=== PATIENT | male | born 1960 | race African-American/Black ===

== ENCOUNTER 2025-02-12 16:11 | Inpatient (IN) | payer MEDICAID ==
[~2025-02-12] VITALS: Ht 172.7 cm; Wt 76.4 kg
[~2025-02-12 16:11] MED LIST: ACET-2708 MT; AMLO10TA80 MT; BENZ1TAB79 MT; BISA-81 MT; FAMO-135 MT; KEPP500 PO; NITR-87 MT; RISP1 PO; TOPUD MT; XALAO EACHEYE
[2025-02-12 17:14] LABS: CREATININE 1.3 mg/dL (0.6-1.3); UREA NITROGEN BLOOD 31 mg/dL (9-23)
[2025-02-12 17:16] LABS: ASPARTATE AMINOTRANSFERASE 191 IU/L (<34); BASOPHILS % 0.4 % (0.0-2.0); BILIRUBIN DIRECT 0.3 mg/dL (<=3.0); BILIRUBIN TOTAL 0.6 mg/dL (0.1-1.0); EOSINOPHILS % 0.8 % (0.0-5.0); HEMATOCRIT. 41.5 % (42.0-52.0); HEMOGLOBIN. 13.1 g/dL (14.0-18.0); LYMPHOCYTES % 16.0 % (20.0-50.0); MEAN PLATELET VOLUME 8.7 fl (7.4-10.4); MONOCYTES % 12.0 % (2.0-8.0); NEUTROPHILS % 70.8 % (40.0-76.0); PLATELET 412 x1000/uL (130-400); PROTEIN TOTAL 6.4 g/dL (6.0-8.3); RED BLOOD CELL COUNT 5.21 mill/uL (4.7-6.1); RED CELL DISTRIBUTION WIDTH 16.4 % (11.6-14.6); TROPONIN I HIGH SENSITIVITY 25 ng/L (3.0-53)
[2025-02-12] MEDS: AZITHROMYCIN 500MG/250ML 250 ML IV STA (17:22)
[2025-02-12] MEDS: CEFTRIAXONE 1GM/50ML 50 ML IV ONE (17:33)
[2025-02-12 18:07] LABS: BG BASE EXCESS -3.1 mmol/L (-2.0-3.0); BG CARBOXYHEMOGLOBIN 1.9 % (0.5-1.5); BG DEOXYHEMOGLOBIN 19.9 % (0.0-5.0); BG FRACTION INSPIRED OXYGEN 40; BG HCO3 ACT 24.0 mmol/L (21.0-28.0); BG METHEMOGLOBIN 0.3 % (0.5-1.5); BG OXYGEN SATURATION 79.7 % (94.0-98.0); BG OXYHEMOGLOBIN 77.9 % (94.0-98.0); BG PCO2 51.0 mmHg (35.0-48.0); BG PH 7.290 (7.350-7.450); BG PO2 52.1 mmHg (83.0-108.0); BG SAMPLE SITE RIGHT RADIAL; BG TOTAL HEMOGLOBIN 13.5 g/dL (13.5-17.5); BG VENT MODE NASAL CANNULA
[2025-02-12 18:28] VITALS: RESP 54
[2025-02-12] MEDS: AZITHROMYCIN 500MG/250ML 250 ML IV SCH (19:31)
[2025-02-12] MEDS ORDERED: ACETAMINOPHEN 325MG TABLET PO PRN (19:45)
[2025-02-12 20:50] VITALS: RESP 32
[2025-02-12 21:00] VITALS: BP 100/77; PULSE 82; RESP 23; TEMP 36.4; O2SAT 95
[2025-02-12 22:00] VITALS: BP 120/108; PULSE 82; RESP 16; O2SAT 99
[2025-02-12] MEDS: PANTOPRAZOLE 40MG DR TABLET PO SCH (22:03)
[2025-02-12] MEDS: LEVETIRACETAM 500MG TABLET PO SCH (22:03)
[2025-02-12] MEDS: BENZTROPINE MESYLATE 1MG TABLET PO SCH (22:03)
[2025-02-12] MEDS: SODIUM CHLORIDE 0.9% 1,000 ML IV ONE (22:09)
[2025-02-12 22:18] VITALS: BP 102/78; PULSE 84; RESP 17; TEMP 36.418
[2025-02-13] VITALS (62 sets, daily range): BP systolic 83–174; BP diastolic 62–115; PULSE 67–89; RESP 19–52; TEMP 35.7–37; O2SAT 87–100
[2025-02-13] MEDS: IPRATROPIUM/ALBUTEROL 0.5-3(2.5)MG/3ML NEB HHN SCH ×2 (02:58→08:50)
[2025-02-13] MEDS ORDERED: FUROSEMIDE 40MG/4ML VIAL IVP SCH (04:00)
[2025-02-13 08:23] LABS: HEMATOCRIT. 40.2 % (42.0-52.0); HEMOGLOBIN. 13.0 g/dL (14.0-18.0); MEAN PLATELET VOLUME 8.5 fl (7.4-10.4); PLATELET 444 x1000/uL (130-400); RED BLOOD CELL COUNT 5.15 mill/uL (4.7-6.1); RED CELL DISTRIBUTION WIDTH 15.9 % (11.6-14.6)
[2025-02-13 08:45] LABS: T4 FREE 1.17 ng/dL (0.89-1.76)
[2025-02-13] MEDS: AMLODIPINE 10MG TABLET PO SCH (09:00)
[2025-02-13] MEDS ORDERED: DOXYCYCLINE HYCLATE 100 MG/VIAL IV ONE (10:00)
[2025-02-13] MEDS ORDERED: DEXTROSE 50% WATER 50ML SYRINGE IV PRN (10:00)
[2025-02-13] MEDS ORDERED: NOREPINEPHRINE 8 MG in DEXT 5% WATER 242 ML IV PRN (11:15)
[2025-02-13 11:25] LABS: BG BASE EXCESS -5.7 mmol/L (-2.0-3.0); BG CARBOXYHEMOGLOBIN 1.6 % (0.5-1.5); BG DEOXYHEMOGLOBIN 14.5 % (0.0-5.0); BG FRACTION INSPIRED OXYGEN 60; BG HCO3 ACT 23.9 mmol/L (21.0-28.0); BG METHEMOGLOBIN 0.3 % (0.5-1.5); BG OXYGEN SATURATION 85.2 % (94.0-98.0); BG OXYHEMOGLOBIN 83.6 % (94.0-98.0); BG PCO2 66.6 mmHg (35.0-48.0); BG PH 7.173 (7.350-7.450); BG PO2 61.2 mmHg (83.0-108.0); BG SAMPLE SITE RIGHT RADIAL; BG TOTAL HEMOGLOBIN 13.5 g/dL (13.5-17.5); BG VENT MODE MASK - BIPAP; BG VENT RATE 22.0 set
[2025-02-13] MEDS: PROPOFOL 10MG/ML 100ML 100 ML IV PRN (12:50)
[2025-02-13] MEDS: PANTOPRAZOLE SODIUM 40 MG/VIAL IV SCH (13:20)
[2025-02-13] MEDS: ENOXAPARIN 60MG/0.6ML SYR SUBCUT SCH (13:20)
[2025-02-13] MEDS: PIPERACILLIN/TAZO 3.375G/50ML 50 ML IV SCH (13:20)
[2025-02-13] MEDS: FUROSEMIDE 40MG/4ML VIAL IVP SCH (13:21)
[2025-02-13 13:34] LABS: INR 1.0
[2025-02-13 14:57] LABS: HEPATITIS C AB REACTIVE (Pos) (Negative)
[2025-02-13 15:09] LABS: CREATININE 1.1 mg/dL (0.6-1.3); UREA NITROGEN BLOOD 28 mg/dL (9-23)
[2025-02-13 15:11] LABS: PHOSPHORUS 4.8 mg/dL (2.5-4.9)
[2025-02-13] MEDS: DEXT 5%/0.9% NACL 1,000 ML IV SCH (15:43)
[2025-02-13] MEDS: VANCOMYCIN 1.25GM/250ML 250 ML IV SCH (15:43)
[2025-02-13] MEDS: DOXYCYCLINE 100MG/100ML 100 ML IV NR (15:43)
[2025-02-13 15:51] LABS: BG BASE EXCESS -0.6 mmol/L (-2.0-3.0); BG CARBOXYHEMOGLOBIN 1.4 % (0.5-1.5); BG DEOXYHEMOGLOBIN 9.8 % (0.0-5.0); BG FRACTION INSPIRED OXYGEN 100; BG HCO3 ACT 25.8 mmol/L (21.0-28.0); BG METHEMOGLOBIN 0.3 % (0.5-1.5); BG OXYGEN SATURATION 90.0 % (94.0-98.0); BG OXYHEMOGLOBIN 88.5 % (94.0-98.0); BG PCO2 49.3 mmHg (35.0-48.0); BG PEEP (cmH2O) 8.0 cmH2O; BG PH 7.337 (7.350-7.450); BG PO2 61.1 mmHg (83.0-108.0); BG SAMPLE SITE RIGHT RADIAL; BG TIDAL VOLUME(mL) 500.0 mL; BG TOTAL HEMOGLOBIN 14.6 g/dL (13.5-17.5); BG VENT MODE VENT - AC; BG VENT RATE 26.0 set
[2025-02-13] MEDS: SODIUM ZIRCONIUM CYCLOSILICATE 10GM/PACKET PO NR (15:52)
[2025-02-13] MEDS: CALCIUM GLUCONATE 1GM PREMIX 50 ML IV SCH (15:53)
[2025-02-13] MEDS: FENTANYL 2500MCG/250ML PMX 250 ML IV PRN (16:33)
[2025-02-13] MEDS: ACETYLCYSTEINE 200MG/ML 20% VIAL 4ML INH SCH (16:35)
[2025-02-13] MEDS ORDERED: CEFTRIAXONE 2GM/50ML 50 ML IV SCH (18:00)
[2025-02-13 19:12] LABS: BAND% 2.0 % (1.0-6.0); LYMPHOCYTES % MANUAL 9.0 % (20.0-50.0); MONOCYTES % MANUAL 7.0 % (2.0-8.0); NEUTROPHILS % MANUAL 82.0 % (45.0-75.0); PLATELET ESTIMATE INCREASED
[2025-02-13] MEDS ORDERED: AZITHROMYCIN 500MG/250ML 250 ML IV SCH (20:00)
[2025-02-13 21:03] LABS: CLARITY URINE CLEAR (CLEAR); GLUCOSE URINE NEGATIVE (NEGATIVE); KETONES URINE NEGATIVE (NEGATIVE); LEUKOCYTE ESTERASE URINE NEGATIVE (NEGATIVE); NITRITE URINE NEGATIVE (NEGATIVE); OCCULT BLOOD URINE TRACE (NEGATIVE); PH URINE 5.0 (4.5-8.0); PROTEIN URINE NEGATIVE (NEGATIVE); SPECIFIC GRAVITY URINE 1.008 (1.005-1.030); UROBILINOGEN URINE 0.2 E.U./dL (0.2-1.0)
[2025-02-13] MEDS: LEVETIRACETAM 1000MG PREMIX 100 ML IV SCH (21:16)
[2025-02-13] MEDS: METHYLPREDNISOLONE SOD SUCC 40MG/ML (ACT-O-VIAL) IV SCH (21:16)
[2025-02-13 21:18] LABS: *AMPHETAMINES SCREEN URINE NEGATIVE (NEGATIVE); *BARBITURATES SCREEN URINE NEGATIVE (NEGATIVE); *BENZODIAZEPINES SCREEN URINE NEGATIVE (NEGATIVE); *COCAINE SCREEN URINE NEGATIVE (NEGATIVE); METHADONE URINE SCREEN NEGATIVE (NEGATIVE)
[2025-02-13 21:19] LABS: CANNABINOID URINE SCREEN NEGATIVE (NEGATIVE); ECSTASY MDMA SCREEN URINE NEGATIVE (NEGATIVE); OPIATES URINE SCREEN NEGATIVE (NEGATIVE); PHENCYCLIDINE URINE SCREEN NEGATIVE (NEGATIVE)
[2025-02-13 21:20] LABS: COLOR URINE STRAW (YELLOW)
[2025-02-13 21:22] LABS: BACTERIA URINE NONE SEEN; RBC URINE 0-2 /hpf (0-2); SQUAMOUS EPITHELIAL CELL URINE RARE /lpf (RARE/1+); WBC URINE NONE SEEN /hpf (0-2)
[2025-02-13] MEDS: LATANOPROST 0.005% OPHTH DROPS 2.5ML EACHEYE SCH (21:36)
[2025-02-13] MEDS: VANCOMYCIN 750MG/150ML (BAXTER) IV SCH (22:10)
[2025-02-14] VITALS (76 sets, daily range): BP systolic 61–134; BP diastolic 51–113; PULSE 51–122; RESP 12–28; TEMP 36.4–37.1; O2SAT 80–100
[2025-02-14] MEDS: NOREPINEPHRINE 8MG/250ML PMX 250ML IV PRN (02:22)
[2025-02-14 03:17] LABS: BASOPHILS % 0.2 % (0.0-2.0); EOSINOPHILS % 4.4 % (0.0-5.0); HEMATOCRIT. 37.5 % (42.0-52.0); HEMOGLOBIN. 12.1 g/dL (14.0-18.0); LYMPHOCYTES % 8.3 % (20.0-50.0); MEAN PLATELET VOLUME 9.0 fl (7.4-10.4); MONOCYTES % 4.8 % (2.0-8.0); NEUTROPHILS % 82.3 % (40.0-76.0); PLATELET 402 x1000/uL (130-400); RED BLOOD CELL COUNT 4.85 mill/uL (4.7-6.1); RED CELL DISTRIBUTION WIDTH 15.6 % (11.6-14.6)
[2025-02-14 03:30] LABS: CREATININE 1.3 mg/dL (0.6-1.3); TRIGLYCERIDE 98 mg/dL (0-150); UREA NITROGEN BLOOD 24 mg/dL (9-23)
[2025-02-14 03:31] LABS: ASPARTATE AMINOTRANSFERASE 117 IU/L (<34)
[2025-02-14 03:32] LABS: BILIRUBIN DIRECT 0.6 mg/dL (<=3.0); BILIRUBIN TOTAL 1.0 mg/dL (0.1-1.0); PHOSPHORUS 3.7 mg/dL (2.5-4.9); PROTEIN TOTAL 5.8 g/dL (6.0-8.3)
[2025-02-14] MEDS: ENOXAPARIN 60MG/0.6ML SYR SUBCUT SCH (04:58)
[2025-02-14] MEDS: SODIUM CHLORIDE 3% FOR INH 4ML NEB INH SCH (08:29)
[2025-02-14 10:08] LABS: BG BASE EXCESS 1.4 mmol/L (-2.0-3.0); BG CARBOXYHEMOGLOBIN 1.4 % (0.5-1.5); BG DEOXYHEMOGLOBIN 11.3 % (0.0-5.0); BG FRACTION INSPIRED OXYGEN 60; BG HCO3 ACT 25.2 mmol/L (21.0-28.0); BG METHEMOGLOBIN 0.3 % (0.5-1.5); BG OXYGEN SATURATION 88.5 % (94.0-98.0); BG OXYHEMOGLOBIN 87.0 % (94.0-98.0); BG PCO2 37.3 mmHg (35.0-48.0); BG PEEP (cmH2O) 8.0 cmH2O; BG PH 7.448 (7.350-7.450); BG PO2 56.4 mmHg (83.0-108.0); BG SAMPLE SITE RIGHT RADIAL; BG TIDAL VOLUME(mL) 500.0 mL; BG TOTAL HEMOGLOBIN 13.3 g/dL (13.5-17.5); BG TOTAL RESPIRATORY RATE 26 b/min; BG VENT MODE VENT - AC; BG VENT RATE 26.0 set
[2025-02-14] MEDS: LORAZEPAM 2MG/ML UD SYRINGE IV PRN (11:30)
[2025-02-14] MEDS: DOXYCYCLINE 100MG/100ML 100 ML IV SCH (13:22)
[2025-02-14] MEDS: ENOXAPARIN 80MG/0.8ML SYR SUBCUT SCH (17:13)
[2025-02-14] MEDS ORDERED: MIDAZOLAM HCL 2 MG/2 ML VIAL IV PRN (21:00)
[2025-02-14] MEDS: DEXMEDETOMIDINE 100 ML IV PRN (21:39)
[2025-02-15] VITALS (71 sets, daily range): BP systolic 75–145; BP diastolic 56–104; PULSE 0–124; RESP 0–36; TEMP 36.4–37.4; O2SAT 94–100
[2025-02-15 05:52] LABS: HEMATOCRIT. 38.8 % (42.0-52.0); HEMOGLOBIN. 12.6 g/dL (14.0-18.0); MEAN PLATELET VOLUME 8.9 fl (7.4-10.4); PLATELET 440 x1000/uL (130-400); RED BLOOD CELL COUNT 5.05 mill/uL (4.7-6.1); RED CELL DISTRIBUTION WIDTH 15.7 % (11.6-14.6)
[2025-02-15 06:12] LABS: CREATININE 1.3 mg/dL (0.6-1.3); UREA NITROGEN BLOOD 26 mg/dL (9-23)
[2025-02-15 06:14] LABS: ASPARTATE AMINOTRANSFERASE 105 IU/L (<34); BILIRUBIN DIRECT 0.6 mg/dL (<=3.0)
[2025-02-15 06:15] LABS: BILIRUBIN TOTAL 1.1 mg/dL (0.1-1.0); PHOSPHORUS 3.3 mg/dL (2.5-4.9); PROTEIN TOTAL 5.9 g/dL (6.0-8.3)
[2025-02-15] MEDS: MIDAZOLAM 100MG/100ML PMX 100 ML IV PRN (09:09)
[2025-02-15] MEDS: BISACODYL 5MG TABLET PO PRN (09:11)
[2025-02-15 09:36] LABS: BG BASE EXCESS 0.2 mmol/L (-2.0-3.0); BG CARBOXYHEMOGLOBIN 1.8 % (0.5-1.5); BG DEOXYHEMOGLOBIN 7.7 % (0.0-5.0); BG FRACTION INSPIRED OXYGEN 40; BG HCO3 ACT 24.3 mmol/L (21.0-28.0); BG METHEMOGLOBIN 0.3 % (0.5-1.5); BG OXYGEN SATURATION 92.1 % (94.0-98.0); BG OXYHEMOGLOBIN 90.2 % (94.0-98.0); BG PCO2 37.5 mmHg (35.0-48.0); BG PEEP (cmH2O) 8.0 cmH2O; BG PH 7.429 (7.350-7.450); BG PO2 68.3 mmHg (83.0-108.0); BG SAMPLE SITE RIGHT RADIAL; BG TIDAL VOLUME(mL) 500.0 mL; BG TOTAL HEMOGLOBIN 13.5 g/dL (13.5-17.5); BG TOTAL RESPIRATORY RATE 22 b/min; BG VENT MODE VENT - AC; BG VENT RATE 22.0 set
[2025-02-15] MEDS ORDERED: PROPOFOL 10MG/ML 100ML 100 ML IV PRN (10:15)
[2025-02-15 12:09] LABS: LYMPHOCYTES % MANUAL 2.0 % (20.0-50.0); MONOCYTES % MANUAL 1.0 % (2.0-8.0); NEUTROPHILS % MANUAL 97.0 % (45.0-75.0); PLATELET ESTIMATE INCREASED
[2025-02-16] VITALS (58 sets, daily range): BP systolic 91–137; BP diastolic 67–91; PULSE 48–83; RESP 18–30; TEMP 36.4–36.9; O2SAT 87–100
[2025-02-16 05:22] LABS: HEMATOCRIT. 39.8 % (42.0-52.0); HEMOGLOBIN. 13.0 g/dL (14.0-18.0); MEAN PLATELET VOLUME 8.5 fl (7.4-10.4); PLATELET 471 x1000/uL (130-400); RED BLOOD CELL COUNT 5.18 mill/uL (4.7-6.1); RED CELL DISTRIBUTION WIDTH 15.6 % (11.6-14.6)
[2025-02-16 05:28] LABS: ASPARTATE AMINOTRANSFERASE 109 IU/L (<34)
[2025-02-16 05:29] LABS: PROTEIN TOTAL 5.8 g/dL (6.0-8.3)
[2025-02-16 05:30] LABS: CREATININE 1.6 mg/dL (0.6-1.3)
[2025-02-16 05:31] LABS: TRIGLYCERIDE 68 mg/dL (0-150); UREA NITROGEN BLOOD 34 mg/dL (9-23)
[2025-02-16 05:32] LABS: BILIRUBIN DIRECT 0.6 mg/dL (<=3.0); PHOSPHORUS 3.1 mg/dL (2.5-4.9)
[2025-02-16 05:33] LABS: BILIRUBIN TOTAL 1.2 mg/dL (0.1-1.0)
[2025-02-16] MEDS: DOCUSATE SODIUM 100MG CAPSULE PO PRN (09:21)
[2025-02-16] MEDS: SODIUM CHLORIDE 0.9% 1,000 ML IV SCH (09:22)
[2025-02-16 10:15] LABS: BG BASE EXCESS 0.9 mmol/L (-2.0-3.0); BG CARBOXYHEMOGLOBIN 0.6 % (0.5-1.5); BG DEOXYHEMOGLOBIN 9.1 % (0.0-5.0); BG FRACTION INSPIRED OXYGEN 40; BG HCO3 ACT 24.9 mmol/L (21.0-28.0); BG METHEMOGLOBIN 0.3 % (0.5-1.5); BG OXYGEN SATURATION 90.8 % (94.0-98.0); BG OXYHEMOGLOBIN 90.0 % (94.0-98.0); BG PCO2 38.1 mmHg (35.0-48.0); BG PEEP (cmH2O) 8.0 cmH2O; BG PH 7.434 (7.350-7.450); BG PO2 66.3 mmHg (83.0-108.0); BG SAMPLE SITE RIGHT RADIAL; BG TIDAL VOLUME(mL) 500.0 mL; BG TOTAL HEMOGLOBIN 13.1 g/dL (13.5-17.5); BG VENT MODE VENT - AC; BG VENT RATE 22.0 set
[2025-02-16] MEDS: LORAZEPAM 2MG/ML UD SYRINGE IV NR (12:25)
[2025-02-16 15:07] LABS: LYMPHOCYTES % MANUAL 6.0 % (20.0-50.0); MONOCYTES % MANUAL 3.0 % (2.0-8.0); NEUTROPHILS % MANUAL 91.0 % (45.0-75.0)
[2025-02-16 15:08] LABS: PLATELET ESTIMATE NORMAL
[2025-02-16] MEDS: FENTANYL CITRATE/PF 2,500 MCG in SODIUM CHLORIDE 0.9% 200 ML IV PRN (21:24)
[2025-02-17] VITALS (104 sets, daily range): BP systolic 94–156; BP diastolic 74–109; PULSE 42–91; RESP 14–23; TEMP 36.1–36.4; O2SAT 73–100
[2025-02-17 06:18] LABS: HEMATOCRIT. 38.6 % (42.0-52.0); HEMOGLOBIN. 12.4 g/dL (14.0-18.0); MEAN PLATELET VOLUME 8.6 fl (7.4-10.4); PLATELET 401 x1000/uL (130-400); RED BLOOD CELL COUNT 4.92 mill/uL (4.7-6.1); RED CELL DISTRIBUTION WIDTH 15.9 % (11.6-14.6)
[2025-02-17 07:25] LABS: CREATININE 1.2 mg/dL (0.6-1.3)
[2025-02-17 07:26] LABS: TRIGLYCERIDE 82 mg/dL (0-150); UREA NITROGEN BLOOD 32 mg/dL (9-23)
[2025-02-17 07:27] LABS: ASPARTATE AMINOTRANSFERASE 97 IU/L (<34); BILIRUBIN DIRECT 0.7 mg/dL (<=3.0)
[2025-02-17 07:28] LABS: BILIRUBIN TOTAL 1.2 mg/dL (0.1-1.0); PHOSPHORUS 2.9 mg/dL (2.5-4.9); PROTEIN TOTAL 5.6 g/dL (6.0-8.3)
[2025-02-17 09:12] LABS: BG BASE EXCESS -0.3 mmol/L (-2.0-3.0); BG CARBOXYHEMOGLOBIN 1.3 % (0.5-1.5); BG DEOXYHEMOGLOBIN 7.0 % (0.0-5.0); BG FRACTION INSPIRED OXYGEN 70; BG HCO3 ACT 23.0 mmol/L (21.0-28.0); BG METHEMOGLOBIN 0.3 % (0.5-1.5); BG OXYGEN SATURATION 92.9 % (94.0-98.0); BG OXYHEMOGLOBIN 91.4 % (94.0-98.0); BG PCO2 33.6 mmHg (35.0-48.0); BG PEEP (cmH2O) 8.0 cmH2O; BG PH 7.453 (7.350-7.450); BG PO2 71.8 mmHg (83.0-108.0); BG SAMPLE SITE RIGHT RADIAL; BG TIDAL VOLUME(mL) 500.0 mL; BG TOTAL HEMOGLOBIN 13.4 g/dL (13.5-17.5); BG VENT MODE VENT - AC; BG VENT RATE 22.0 set
[2025-02-17] MEDS: PROPOFOL 10MG/ML 100ML 100 ML IV PRN ×2 (13:09→23:55)
[2025-02-17 19:04] LABS: BAND% 3.0 % (1.0-6.0); LYMPHOCYTES % MANUAL 3.0 % (20.0-50.0); MONOCYTES % MANUAL 7.0 % (2.0-8.0); NEUTROPHILS % MANUAL 87.0 % (45.0-75.0); PLATELET ESTIMATE SLIGHTLY INCREASED
[2025-02-18] VITALS (111 sets, daily range): BP systolic 81–163; BP diastolic 49–110; PULSE 40–86; RESP 14–25; TEMP 36.1–37.1; O2SAT 94–100
[2025-02-18 05:39] LABS: HEMATOCRIT. 38.4 % (42.0-52.0); HEMOGLOBIN. 12.6 g/dL (14.0-18.0); MEAN PLATELET VOLUME 8.8 fl (7.4-10.4); PLATELET 397 x1000/uL (130-400); RED BLOOD CELL COUNT 5.09 mill/uL (4.7-6.1); RED CELL DISTRIBUTION WIDTH 15.9 % (11.6-14.6)
[2025-02-18 05:54] LABS: CREATININE 1.0 mg/dL (0.6-1.3); TRIGLYCERIDE 122 mg/dL (0-150); UREA NITROGEN BLOOD 34 mg/dL (9-23)
[2025-02-18 05:56] LABS: PHOSPHORUS 2.2 mg/dL (2.5-4.9)
[2025-02-18 07:04] LABS: BAND% 2.0 % (1.0-6.0); EOSINOPHILS % MANUAL 2.0 % (0.0-5.0); LYMPHOCYTES % MANUAL 7.0 % (20.0-50.0); MONOCYTES % MANUAL 3.0 % (2.0-8.0); NEUTROPHILS % MANUAL 86.0 % (45.0-75.0); PLATELET ESTIMATE NORMAL
[2025-02-18] MEDS: IPRATROPIUM/ALBUTEROL 0.5-3(2.5)MG/3ML NEB HHN PRN (08:28)
[2025-02-18 09:22] LABS: T4 FREE 1.24 ng/dL (0.89-1.76)
[2025-02-18 10:39] LABS: BG BASE EXCESS -1.5 mmol/L (-2.0-3.0); BG CARBOXYHEMOGLOBIN 1.1 % (0.5-1.5); BG DEOXYHEMOGLOBIN 9.3 % (0.0-5.0); BG FRACTION INSPIRED OXYGEN 60; BG HCO3 ACT 21.7 mmol/L (21.0-28.0); BG METHEMOGLOBIN 0.3 % (0.5-1.5); BG OXYGEN SATURATION 90.6 % (94.0-98.0); BG OXYHEMOGLOBIN 89.3 % (94.0-98.0); BG PCO2 32.3 mmHg (35.0-48.0); BG PEEP (cmH2O) 8.0 cmH2O; BG PH 7.445 (7.350-7.450); BG PO2 63.1 mmHg (83.0-108.0); BG SAMPLE SITE RIGHT RADIAL; BG TIDAL VOLUME(mL) 500.0 mL; BG TOTAL HEMOGLOBIN 13.5 g/dL (13.5-17.5); BG VENT MODE VENT - PRVC; BG VENT RATE 18.0 set
[2025-02-18] MEDS: SODIUM PHOSPHATE 15 MMOL in DEXT 5% WATER 245 ML IV NR (12:08)
[2025-02-18] MEDS: IPRATROPIUM/ALBUTEROL 0.5-3(2.5)MG/3ML NEB HHN SCH (12:52)
[2025-02-18] MEDS ORDERED: LIDOCAINE HCL 1% 10 MG/ML 10ML VIAL ONE (13:18)
[2025-02-18] MEDS ORDERED: IOHEXOL-300 100 ML BOTTLE ONE (13:19)
[2025-02-18] MEDS: PROPOFOL 10MG/ML 100ML 100 ML IV PRN (13:27)
[2025-02-19] VITALS (101 sets, daily range): BP systolic 117–154; BP diastolic 75–105; PULSE 42–90; RESP 16–21; TEMP 36.6–37.2; O2SAT 89–100
[2025-02-19 07:37] LABS: CREATININE 1.0 mg/dL (0.6-1.3)
[2025-02-19 07:38] LABS: TRIGLYCERIDE 99 mg/dL (0-150); UREA NITROGEN BLOOD 26 mg/dL (9-23)
[2025-02-19 07:39] LABS: HEMATOCRIT. 42.6 % (42.0-52.0); HEMOGLOBIN. 13.8 g/dL (14.0-18.0); MEAN PLATELET VOLUME 8.9 fl (7.4-10.4); PLATELET 390 x1000/uL (130-400); RED BLOOD CELL COUNT 5.58 mill/uL (4.7-6.1); RED CELL DISTRIBUTION WIDTH 16.0 % (11.6-14.6)
[2025-02-19 07:40] LABS: PHOSPHORUS 3.9 mg/dL (2.5-4.9)
[2025-02-19 08:54] LABS: BG BASE EXCESS -2.8 mmol/L (-2.0-3.0); BG CARBOXYHEMOGLOBIN 1.5 % (0.5-1.5); BG DEOXYHEMOGLOBIN 9.1 % (0.0-5.0); BG FRACTION INSPIRED OXYGEN 50; BG HCO3 ACT 19.8 mmol/L (21.0-28.0); BG METHEMOGLOBIN 0.3 % (0.5-1.5); BG OXYGEN SATURATION 90.7 % (94.0-98.0); BG OXYHEMOGLOBIN 89.1 % (94.0-98.0); BG PCO2 28.5 mmHg (35.0-48.0); BG PEEP (cmH2O) 8.0 cmH2O; BG PH 7.459 (7.350-7.450); BG PO2 64.4 mmHg (83.0-108.0); BG SAMPLE SITE RIGHT RADIAL; BG TIDAL VOLUME(mL) 500.0 mL; BG TOTAL HEMOGLOBIN 13.1 g/dL (13.5-17.5); BG VENT MODE VENT - PRVC; BG VENT RATE 18.0 set
[2025-02-19 11:55] LABS: BAND% 5.0 % (1.0-6.0); LYMPHOCYTES % MANUAL 4.0 % (20.0-50.0); MONOCYTES % MANUAL 3.0 % (2.0-8.0); NEUTROPHILS % MANUAL 88.0 % (45.0-75.0); PLATELET ESTIMATE NORMAL
[2025-02-19] MEDS: ATROPINE SULFATE 1MG/10ML SYR IV PRN (19:34)
[2025-02-20] VITALS (105 sets, daily range): BP systolic 102–171; BP diastolic 67–117; PULSE 40–98; RESP 17–29; TEMP 36.4–36.8; O2SAT 87–100
[2025-02-20 07:03] LABS: CREATININE 0.9 mg/dL (0.6-1.3)
[2025-02-20 07:04] LABS: UREA NITROGEN BLOOD 27 mg/dL (9-23)
[2025-02-20 07:05] LABS: PHOSPHORUS 2.4 mg/dL (2.5-4.9)
[2025-02-20 07:09] LABS: BASOPHILS % 0.0 % (0.0-2.0); EOSINOPHILS % 2.7 % (0.0-5.0); HEMATOCRIT. 40.4 % (42.0-52.0); HEMOGLOBIN. 13.0 g/dL (14.0-18.0); LYMPHOCYTES % 7.8 % (20.0-50.0); MEAN PLATELET VOLUME 8.9 fl (7.4-10.4); MONOCYTES % 4.5 % (2.0-8.0); NEUTROPHILS % 85.0 % (40.0-76.0); PLATELET 363 x1000/uL (130-400); RED BLOOD CELL COUNT 5.31 mill/uL (4.7-6.1); RED CELL DISTRIBUTION WIDTH 16.0 % (11.6-14.6)
[2025-02-20 08:55] LABS: BG BASE EXCESS -2.2 mmol/L (-2.0-3.0); BG CARBOXYHEMOGLOBIN 0.7 % (0.5-1.5); BG DEOXYHEMOGLOBIN 0.5 % (0.0-5.0); BG FRACTION INSPIRED OXYGEN 100; BG HCO3 ACT 20.6 mmol/L (21.0-28.0); BG METHEMOGLOBIN 0.3 % (0.5-1.5); BG OXYGEN SATURATION 99.5 % (94.0-98.0); BG OXYHEMOGLOBIN 98.5 % (94.0-98.0); BG PCO2 29.3 mmHg (35.0-48.0); BG PEEP (cmH2O) 6.0 cmH2O; BG PH 7.464 (7.350-7.450); BG PO2 232.8 mmHg (83.0-108.0); BG SAMPLE SITE RIGHT RADIAL; BG TIDAL VOLUME(mL) 500.0 mL; BG TOTAL HEMOGLOBIN 12.2 g/dL (13.5-17.5); BG VENT MODE VENT - AC/PRVC; BG VENT RATE 18.0 set
[2025-02-20] MEDS: SODIUM PHOSPHATE 10 MMOL in DEXT 5% WATER 246.6667 ML IV SCH (10:17)
[2025-02-20] MEDS: GUAIFENESIN 200MG/10ML SUGAR FREE UDC PO SCH (11:47)
[2025-02-20] MEDS ORDERED: SODIUM CHLORIDE 3% FOR INH 15ML NEB INH SCH (12:00)
[2025-02-20] MEDS: ACETYLCYSTEINE 200MG/ML 20% VIAL 4ML INH SCH (16:21)
[2025-02-20] MEDS: AMLODIPINE 2.5MG TABLET PO SCH (21:00)
[2025-02-20] MEDS: SODIUM CHLORIDE 3% FOR INH 4ML NEB INH SCH (21:53)
[2025-02-20] MEDS: DEXMEDETOMIDINE 100 ML IV PRN (21:59)
[2025-02-21] VITALS (105 sets, daily range): BP systolic 94–185; BP diastolic 65–146; PULSE 43–113; RESP 16–24; TEMP 36.7–36.9; O2SAT 87–100
[2025-02-21] MEDS: HYDRALAZINE 20MG/ML VIAL IV NR (04:06)
[2025-02-21 06:09] LABS: HEMATOCRIT. 43.2 % (42.0-52.0); HEMOGLOBIN. 13.8 g/dL (14.0-18.0); MEAN PLATELET VOLUME 9.6 fl (7.4-10.4); PLATELET 290 x1000/uL (130-400); RED BLOOD CELL COUNT 5.62 mill/uL (4.7-6.1); RED CELL DISTRIBUTION WIDTH 16.2 % (11.6-14.6)
[2025-02-21 06:40] LABS: CREATININE 0.9 mg/dL (0.6-1.3); UREA NITROGEN BLOOD 22 mg/dL (9-23)
[2025-02-21 06:42] LABS: PHOSPHORUS 3.0 mg/dL (2.5-4.9)
[2025-02-21 09:01] LABS: BG BASE EXCESS -2.4 mmol/L (-2.0-3.0); BG CARBOXYHEMOGLOBIN 0.6 % (0.5-1.5); BG DEOXYHEMOGLOBIN 2.4 % (0.0-5.0); BG FRACTION INSPIRED OXYGEN 100; BG HCO3 ACT 22.7 mmol/L (21.0-28.0); BG METHEMOGLOBIN 0.3 % (0.5-1.5); BG OXYGEN SATURATION 97.6 % (94.0-98.0); BG OXYHEMOGLOBIN 96.7 % (94.0-98.0); BG PCO2 40.4 mmHg (35.0-48.0); BG PEEP (cmH2O) 8.0 cmH2O; BG PH 7.367 (7.350-7.450); BG PO2 106.6 mmHg (83.0-108.0); BG SAMPLE SITE RIGHT RADIAL; BG TIDAL VOLUME(mL) 500.0 mL; BG TOTAL HEMOGLOBIN 14.3 g/dL (13.5-17.5); BG VENT MODE VENT - PRVC; BG VENT RATE 18.0 set
[2025-02-21] MEDS: ENOXAPARIN 40MG/0.4ML SYR SUBCUT SCH (10:02)
[2025-02-21] MEDS: LIDOCAINE HCL 1% 10 MG/ML 10ML VIAL ONE (10:03)
[2025-02-21] MEDS: IOHEXOL-300 100 ML BOTTLE ONE (10:03)
[2025-02-21] MEDS: MIDAZOLAM 100MG/100ML PMX 100 ML IV PRN (12:33)
[2025-02-21] MEDS ORDERED: DEXTROSE 50% WATER 50ML SYRINGE IV PRN (16:00)
[2025-02-21] MEDS ORDERED: BLOOD SUGAR DIAGNOSTIC STRIP TEST SCH (16:30)
[2025-02-21 16:41] LABS: LYMPHOCYTES % MANUAL 5.0 % (20.0-50.0); MONOCYTES % MANUAL 13.0 % (2.0-8.0); NEUTROPHILS % MANUAL 82.0 % (45.0-75.0); PLATELET ESTIMATE NORMAL
[2025-02-21] MEDS ORDERED: INSULIN LISPRO 100 UNITS/ML SUBCUT SCH (17:00)
[2025-02-22] VITALS (93 sets, daily range): BP systolic 90–129; BP diastolic 66–98; PULSE 53–109; RESP 14–21; TEMP 36.2–37.2; O2SAT 7–100
[2025-02-22 06:21] LABS: CREATININE 1.0 mg/dL (0.6-1.3)
[2025-02-22 06:22] LABS: UREA NITROGEN BLOOD 34 mg/dL (9-23)
[2025-02-22 06:24] LABS: PHOSPHORUS 3.5 mg/dL (2.5-4.9)
[2025-02-22 06:26] LABS: HEMATOCRIT. 38.2 % (42.0-52.0); HEMOGLOBIN. 12.6 g/dL (14.0-18.0); MEAN PLATELET VOLUME 9.2 fl (7.4-10.4); PLATELET 325 x1000/uL (130-400); RED BLOOD CELL COUNT 4.98 mill/uL (4.7-6.1); RED CELL DISTRIBUTION WIDTH 16.4 % (11.6-14.6)
[2025-02-22 09:04] LABS: BG BASE EXCESS -4.1 mmol/L (-2.0-3.0); BG CARBOXYHEMOGLOBIN 1.4 % (0.5-1.5); BG DEOXYHEMOGLOBIN 8.0 % (0.0-5.0); BG FRACTION INSPIRED OXYGEN 70; BG HCO3 ACT 20.3 mmol/L (21.0-28.0); BG METHEMOGLOBIN 0.0 % (0.5-1.5); BG OXYGEN SATURATION 91.9 % (94.0-98.0); BG OXYHEMOGLOBIN 90.6 % (94.0-98.0); BG PCO2 35.1 mmHg (35.0-48.0); BG PEEP (cmH2O) 8.0 cmH2O; BG PH 7.380 (7.350-7.450); BG PO2 67.3 mmHg (83.0-108.0); BG SAMPLE SITE RIGHT RADIAL; BG TIDAL VOLUME(mL) 500.0 mL; BG TOTAL HEMOGLOBIN 12.7 g/dL (13.5-17.5); BG VENT MODE VENT - AC; BG VENT RATE 18.0 set
[2025-02-22] MEDS: FENTANYL 2500MCG/250ML PMX 250 ML IV PRN (09:36)
[2025-02-22 21:26] LABS: EOSINOPHILS % MANUAL 1.0 % (0.0-5.0); LYMPHOCYTES % MANUAL 6.0 % (20.0-50.0); MONOCYTES % MANUAL 5.0 % (2.0-8.0); NEUTROPHILS % MANUAL 88.0 % (45.0-75.0); PLATELET ESTIMATE NORMAL
[2025-02-22 23:48] LABS: BG BASE EXCESS -2.2 mmol/L (-2.0-3.0); BG CARBOXYHEMOGLOBIN 0.2 % (0.5-1.5); BG DEOXYHEMOGLOBIN 6.6 % (0.0-5.0); BG FRACTION INSPIRED OXYGEN 100; BG HCO3 ACT 22.2 mmol/L (21.0-28.0); BG METHEMOGLOBIN 0.3 % (0.5-1.5); BG OXYGEN SATURATION 93.4 % (94.0-98.0); BG OXYHEMOGLOBIN 92.9 % (94.0-98.0); BG PCO2 37.0 mmHg (35.0-48.0); BG PEEP (cmH2O) 8.0 cmH2O; BG PH 7.396 (7.350-7.450); BG PO2 71.8 mmHg (83.0-108.0); BG SAMPLE SITE LEFT RADIAL; BG TIDAL VOLUME(mL) 500.0 mL; BG TOTAL HEMOGLOBIN 13.5 g/dL (13.5-17.5); BG VENT MODE VENT - AC; BG VENT RATE 18.0 set
[2025-02-23] VITALS (108 sets, daily range): BP systolic 90–166; BP diastolic 65–97; PULSE 45–81; RESP 10–20; TEMP 36.4–37; O2SAT 94–100
[2025-02-23 06:23] LABS: HEMATOCRIT. 36.3 % (42.0-52.0); HEMOGLOBIN. 11.8 g/dL (14.0-18.0); MEAN PLATELET VOLUME 10.1 fl (7.4-10.4); PLATELET 291 x1000/uL (130-400); RED BLOOD CELL COUNT 4.77 mill/uL (4.7-6.1); RED CELL DISTRIBUTION WIDTH 16.4 % (11.6-14.6)
[2025-02-23 06:43] LABS: CREATININE 0.9 mg/dL (0.6-1.3); UREA NITROGEN BLOOD 32 mg/dL (9-23)
[2025-02-23 06:45] LABS: PHOSPHORUS 2.6 mg/dL (2.5-4.9)
[2025-02-23] MEDS ORDERED: LIDOCAINE HCL 1% 10 MG/ML 10ML VIAL ONE (08:13)
[2025-02-23 09:36] LABS: BG BASE EXCESS -1.3 mmol/L (-2.0-3.0); BG CARBOXYHEMOGLOBIN 1.1 % (0.5-1.5); BG DEOXYHEMOGLOBIN 1.9 % (0.0-5.0); BG FRACTION INSPIRED OXYGEN 100; BG HCO3 ACT 22.5 mmol/L (21.0-28.0); BG METHEMOGLOBIN 0.0 % (0.5-1.5); BG OXYGEN SATURATION 98.1 % (94.0-98.0); BG OXYHEMOGLOBIN 97.0 % (94.0-98.0); BG PCO2 34.9 mmHg (35.0-48.0); BG PEEP (cmH2O) 8.0 cmH2O; BG PH 7.428 (7.350-7.450); BG PO2 123.7 mmHg (83.0-108.0); BG SAMPLE SITE RIGHT RADIAL; BG TIDAL VOLUME(mL) 500.0 mL; BG TOTAL HEMOGLOBIN 12.1 g/dL (13.5-17.5); BG VENT MODE VENT - AC/PRVC; BG VENT RATE 18.0 set
[2025-02-23 12:07] LABS: BAND% 1.0 % (1.0-6.0); LYMPHOCYTES % MANUAL 1.0 % (20.0-50.0); MONOCYTES % MANUAL 2.0 % (2.0-8.0); NEUTROPHILS % MANUAL 96.0 % (45.0-75.0)
[2025-02-23 12:08] LABS: PLATELET ESTIMATE NORMAL
[2025-02-23] MEDS: METHYLPREDNISOLONE SOD SUCC 125MG/2ML (ACT-O-VIAL) IV SCH (12:29)
[2025-02-23] MEDS: SODIUM CHLORIDE 3% FOR INH 4ML NEB INH SCH (15:37)
[2025-02-24] VITALS (109 sets, daily range): BP systolic 92–182; BP diastolic 62–107; PULSE 40–77; RESP 6–21; TEMP 36.2–37; O2SAT 93–100
[2025-02-24 06:36] LABS: CREATININE 0.7 mg/dL (0.6-1.3)
[2025-02-24 06:37] LABS: UREA NITROGEN BLOOD 24 mg/dL (9-23)
[2025-02-24 06:39] LABS: PHOSPHORUS 1.9 mg/dL (2.5-4.9)
[2025-02-24 07:13] LABS: BASOPHILS % 0.2 % (0.0-2.0); EOSINOPHILS % 0.3 % (0.0-5.0); HEMATOCRIT. 38.4 % (42.0-52.0); HEMOGLOBIN. 12.9 g/dL (14.0-18.0); LYMPHOCYTES % 9.7 % (20.0-50.0); MEAN PLATELET VOLUME 10.0 fl (7.4-10.4); MONOCYTES % 2.3 % (2.0-8.0); NEUTROPHILS % 87.5 % (40.0-76.0); PLATELET 279 x1000/uL (130-400); RED BLOOD CELL COUNT 5.11 mill/uL (4.7-6.1); RED CELL DISTRIBUTION WIDTH 16.3 % (11.6-14.6)
[2025-02-24] MEDS: HYDRALAZINE HCL 50MG TABLET PO SCH (07:15)
[2025-02-24 09:26] LABS: BG BASE EXCESS 0.7 mmol/L (-2.0-3.0); BG CARBOXYHEMOGLOBIN 0.5 % (0.5-1.5); BG DEOXYHEMOGLOBIN 3.2 % (0.0-5.0); BG FRACTION INSPIRED OXYGEN 80; BG HCO3 ACT 24.9 mmol/L (21.0-28.0); BG METHEMOGLOBIN 0.3 % (0.5-1.5); BG OXYGEN SATURATION 96.8 % (94.0-98.0); BG OXYHEMOGLOBIN 96.0 % (94.0-98.0); BG PCO2 38.5 mmHg (35.0-48.0); BG PEEP (cmH2O) 8.0 cmH2O; BG PH 7.429 (7.350-7.450); BG PO2 93.6 mmHg (83.0-108.0); BG SAMPLE SITE RIGHT RADIAL; BG TIDAL VOLUME(mL) 500.0 mL; BG TOTAL HEMOGLOBIN 13.3 g/dL (13.5-17.5); BG VENT MODE VENT - AC/PRVC; BG VENT RATE 18.0 set
[2025-02-24] MEDS: SODIUM PHOSPHATE 30 MMOL in DEXT 5% WATER 490 ML IV NR (11:40)
[2025-02-24] MEDS ORDERED: LIDOCAINE HCL 1% 10 MG/ML 10ML VIAL INL NR (12:00)
[2025-02-25] VITALS (99 sets, daily range): BP systolic 104–157; BP diastolic 69–95; PULSE 49–90; RESP 10–25; TEMP 36.8–36.9; O2SAT 87–98
[2025-02-25 06:08] LABS: BASOPHILS % 0.1 % (0.0-2.0); EOSINOPHILS % 0.1 % (0.0-5.0); HEMATOCRIT. 39.5 % (42.0-52.0); HEMOGLOBIN. 12.6 g/dL (14.0-18.0); LYMPHOCYTES % 10.8 % (20.0-50.0); MEAN PLATELET VOLUME 10.1 fl (7.4-10.4); MONOCYTES % 9.0 % (2.0-8.0); NEUTROPHILS % 80.0 % (40.0-76.0); PLATELET 296 x1000/uL (130-400); RED BLOOD CELL COUNT 5.19 mill/uL (4.7-6.1); RED CELL DISTRIBUTION WIDTH 16.4 % (11.6-14.6)
[2025-02-25 06:32] LABS: CREATININE 0.8 mg/dL (0.6-1.3); UREA NITROGEN BLOOD 25 mg/dL (9-23)
[2025-02-25 06:34] LABS: ASPARTATE AMINOTRANSFERASE 99 IU/L (<34); BILIRUBIN DIRECT 0.4 mg/dL (<=3.0); BILIRUBIN TOTAL 0.9 mg/dL (0.1-1.0); PHOSPHORUS 2.6 mg/dL (2.5-4.9); PROTEIN TOTAL 5.0 g/dL (6.0-8.3)
[2025-02-25 08:34] LABS: BG BASE EXCESS 1.7 mmol/L (-2.0-3.0); BG CARBOXYHEMOGLOBIN 1.4 % (0.5-1.5); BG DEOXYHEMOGLOBIN 13.7 % (0.0-5.0); BG FRACTION INSPIRED OXYGEN 50; BG HCO3 ACT 24.8 mmol/L (21.0-28.0); BG METHEMOGLOBIN 0.3 % (0.5-1.5); BG OXYGEN SATURATION 86.1 % (94.0-98.0); BG OXYHEMOGLOBIN 84.6 % (94.0-98.0); BG PCO2 34.2 mmHg (35.0-48.0); BG PEEP (cmH2O) 8.0 cmH2O; BG PH 7.478 (7.350-7.450); BG PO2 51.8 mmHg (83.0-108.0); BG SAMPLE SITE RIGHT RADIAL; BG TIDAL VOLUME(mL) 500.0 mL; BG TOTAL HEMOGLOBIN 13.1 g/dL (13.5-17.5); BG VENT MODE PRVC; BG VENT RATE 18.0 set
[2025-02-25] MEDS: IPRATROPIUM/ALBUTEROL 0.5-3(2.5)MG/3ML NEB HHN SCH (08:48)
[2025-02-25] MEDS: PIPERACILLIN/TAZO 3.375G/50ML 50 ML IV SCH (12:26)
[2025-02-26] VITALS (100 sets, daily range): BP systolic 96–133; BP diastolic 62–95; PULSE 48–94; RESP 6–27; TEMP 36.5–36.9; O2SAT 84–100
[2025-02-26] MEDS: PIPERACILLIN/TAZO 3.375G/50ML 50 ML IV SCH (00:23)
[2025-02-26 07:08] LABS: HEMATOCRIT. 38.3 % (42.0-52.0); HEMOGLOBIN. 12.5 g/dL (14.0-18.0); MEAN PLATELET VOLUME 10.2 fl (7.4-10.4); PLATELET 239 x1000/uL (130-400); RED BLOOD CELL COUNT 5.07 mill/uL (4.7-6.1); RED CELL DISTRIBUTION WIDTH 16.5 % (11.6-14.6)
[2025-02-26 07:14] LABS: CREATININE 0.8 mg/dL (0.6-1.3); UREA NITROGEN BLOOD 29 mg/dL (9-23)
[2025-02-26 07:16] LABS: PHOSPHORUS 2.9 mg/dL (2.5-4.9)
[2025-02-26 09:46] LABS: BG BASE EXCESS -2.1 mmol/L (-2.0-3.0); BG CARBOXYHEMOGLOBIN 1.2 % (0.5-1.5); BG DEOXYHEMOGLOBIN 2.8 % (0.0-5.0); BG FRACTION INSPIRED OXYGEN 50; BG HCO3 ACT 20.1 mmol/L (21.0-28.0); BG METHEMOGLOBIN 0.3 % (0.5-1.5); BG OXYGEN SATURATION 97.2 % (94.0-98.0); BG OXYHEMOGLOBIN 95.7 % (94.0-98.0); BG PCO2 27.8 mmHg (35.0-48.0); BG PEEP (cmH2O) 8.0 cmH2O; BG PH 7.477 (7.350-7.450); BG PO2 93.2 mmHg (83.0-108.0); BG SAMPLE SITE RIGHT RADIAL; BG TIDAL VOLUME(mL) 500.0 mL; BG TOTAL HEMOGLOBIN 13.4 g/dL (13.5-17.5); BG VENT MODE VENT - PRVC; BG VENT RATE 18.0 set
[2025-02-26 11:56] LABS: BAND% 5.0 % (1.0-6.0); LYMPHOCYTES % MANUAL 4.0 % (20.0-50.0); MONOCYTES % MANUAL 1.0 % (2.0-8.0); NEUTROPHILS % MANUAL 90.0 % (45.0-75.0); PLATELET ESTIMATE NORMAL
[2025-02-26] MEDS: MEROPENEM 1G/100ML 100 ML IV SCH (17:50)
[2025-02-27] VITALS (95 sets, daily range): BP systolic 101–163; BP diastolic 59–112; PULSE 41–132; RESP 0–45; TEMP 36.5–36.9; O2SAT 84–100
[2025-02-27] MEDS: DEXMEDETOMIDINE 100 ML IV PRN (00:14)
[2025-02-27 05:08] LABS: PLATELET 229 x1000/uL (130-400); RED BLOOD CELL COUNT 5.17 mill/uL (4.7-6.1); RED CELL DISTRIBUTION WIDTH 16.6 % (11.6-14.6)
[2025-02-27] MEDS: FENTANYL 2500MCG/250ML PMX 250 ML IV PRN (06:26)
[2025-02-27 10:08] LABS: BG BASE EXCESS -0.2 mmol/L (-2.0-3.0); BG CARBOXYHEMOGLOBIN 0.9 % (0.5-1.5); BG DEOXYHEMOGLOBIN 3.7 % (0.0-5.0); BG FRACTION INSPIRED OXYGEN 40; BG HCO3 ACT 23.7 mmol/L (21.0-28.0); BG METHEMOGLOBIN 0.3 % (0.5-1.5); BG OXYGEN SATURATION 96.3 % (94.0-98.0); BG OXYHEMOGLOBIN 95.1 % (94.0-98.0); BG PCO2 36.6 mmHg (35.0-48.0); BG PEEP (cmH2O) 5.0 cmH2O; BG PH 7.430 (7.350-7.450); BG PO2 86.5 mmHg (83.0-108.0); BG SAMPLE SITE RIGHT RADIAL; BG TIDAL VOLUME(mL) 500.0 mL; BG TOTAL HEMOGLOBIN 13.7 g/dL (13.5-17.5); BG VENT MODE VENT - PRVC; BG VENT RATE 18.0 set
[2025-02-27] MEDS: IPRATROPIUM/ALBUTEROL 0.5-3(2.5)MG/3ML NEB HHN PRN (17:17)
[2025-02-27] MEDS: RACEPINEPHRINE 2.25% 0.5ML NEB VIAL HHN ONE (17:17)
[2025-02-28] VITALS (96 sets, daily range): BP systolic 100–154; BP diastolic 69–114; PULSE 50–75; RESP 0–40; TEMP 36.4–37.1; O2SAT 83–100
[2025-02-28 05:07] LABS: CREATININE 0.8 mg/dL (0.6-1.3)
[2025-02-28 05:08] LABS: UREA NITROGEN BLOOD 28 mg/dL (9-23)
[2025-02-28 05:10] LABS: HEMATOCRIT. 37.4 % (42.0-52.0); HEMOGLOBIN. 12.3 g/dL (14.0-18.0); MEAN PLATELET VOLUME 10.4 fl (7.4-10.4); PHOSPHORUS 2.6 mg/dL (2.5-4.9); PLATELET 205 x1000/uL (130-400); RED BLOOD CELL COUNT 4.89 mill/uL (4.7-6.1); RED CELL DISTRIBUTION WIDTH 16.9 % (11.6-14.6)
[2025-02-28 09:01] LABS: BG BASE EXCESS 3.1 mmol/L (-2.0-3.0); BG CARBOXYHEMOGLOBIN 1.4 % (0.5-1.5); BG DEOXYHEMOGLOBIN 3.7 % (0.0-5.0); BG FRACTION INSPIRED OXYGEN 100; BG HCO3 ACT 27.7 mmol/L (21.0-28.0); BG METHEMOGLOBIN 0.1 % (0.5-1.5); BG OXYGEN SATURATION 96.2 % (94.0-98.0); BG OXYHEMOGLOBIN 94.8 % (94.0-98.0); BG PCO2 42.3 mmHg (35.0-48.0); BG PH 7.434 (7.350-7.450); BG PO2 83.4 mmHg (83.0-108.0); BG SAMPLE SITE RIGHT RADIAL; BG TOTAL HEMOGLOBIN 12.8 g/dL (13.5-17.5); BG TOTAL RESPIRATORY RATE 37 b/min; BG VENT MODE MASK - BIPAP; BG VENT RATE 22.0 set
[2025-02-28 10:22] LABS: LYMPHOCYTES % MANUAL 7.0 % (20.0-50.0); MONOCYTES % MANUAL 10.0 % (2.0-8.0); NEUTROPHILS % MANUAL 83.0 % (45.0-75.0); PLATELET ESTIMATE NORMAL
[2025-03-01] VITALS (54 sets, daily range): BP systolic 120–162; BP diastolic 70–106; PULSE 59–97; RESP 6–45; TEMP 36.3–37.6; O2SAT 89–100
[2025-03-01 06:18] LABS: CREATININE 1.0 mg/dL (0.6-1.3); UREA NITROGEN BLOOD 32 mg/dL (9-23)
[2025-03-01 06:20] LABS: PHOSPHORUS 3.1 mg/dL (2.5-4.9); PLATELET 209 x1000/uL (130-400); RED BLOOD CELL COUNT 5.66 mill/uL (4.7-6.1); RED CELL DISTRIBUTION WIDTH 17.2 % (11.6-14.6)
[2025-03-01] MEDS ORDERED: SODIUM POLYSTYRENE SULFONATE 15 G/60 ML BOT PO ONE (08:15)
[2025-03-01] MEDS: SODIUM ZIRCONIUM CYCLOSILICATE 10GM/PACKET PO SCH (08:43)
[2025-03-01] MEDS: ACETYLCYSTEINE 200MG/ML 20% VIAL 4ML INH SCH (09:35)
[2025-03-01 09:47] LABS: BG BASE EXCESS 2.4 mmol/L (-2.0-3.0); BG CARBOXYHEMOGLOBIN 1.1 % (0.5-1.5); BG DEOXYHEMOGLOBIN 5.8 % (0.0-5.0); BG FRACTION INSPIRED OXYGEN 50; BG HCO3 ACT 27.1 mmol/L (21.0-28.0); BG METHEMOGLOBIN 0.3 % (0.5-1.5); BG OXYGEN SATURATION 94.1 % (94.0-98.0); BG OXYHEMOGLOBIN 92.8 % (94.0-98.0); BG PCO2 42.0 mmHg (35.0-48.0); BG PH 7.427 (7.350-7.450); BG PO2 71.4 mmHg (83.0-108.0); BG SAMPLE SITE RIGHT RADIAL; BG TOTAL HEMOGLOBIN 14.3 g/dL (13.5-17.5); BG VENT MODE MASK - BIPAP; BG VENT RATE 20.0 set
[2025-03-01] MEDS: ACETAMINOPHEN 325MG TABLET PO PRN (13:27)
[2025-03-01 15:00] LABS: BG BASE EXCESS 5.8 mmol/L (-2.0-3.0); BG CARBOXYHEMOGLOBIN 0.8 % (0.5-1.5); BG DEOXYHEMOGLOBIN 7.8 % (0.0-5.0); BG FLOW(L/min) 40.00 L/min; BG FRACTION INSPIRED OXYGEN 65; BG HCO3 ACT 29.6 mmol/L (21.0-28.0); BG METHEMOGLOBIN 0.3 % (0.5-1.5); BG OXYGEN SATURATION 92.1 % (94.0-98.0); BG OXYHEMOGLOBIN 91.1 % (94.0-98.0); BG PCO2 40.0 mmHg (35.0-48.0); BG PH 7.487 (7.350-7.450); BG PO2 61.1 mmHg (83.0-108.0); BG SAMPLE SITE RIGHT RADIAL; BG TOTAL HEMOGLOBIN 15.2 g/dL (13.5-17.5); BG VENT MODE HIGH FLOW
[2025-03-01] MEDS: LORAZEPAM 0.5MG TABLET PO SCH (23:34)
[2025-03-02] VITALS (20 sets, daily range): BP systolic 112–160; BP diastolic 80–101; PULSE 84–99; RESP 14–46; TEMP 36.6–37.7; O2SAT 90–100
[2025-03-02] MEDS ORDERED: HYDRALAZINE 20MG/ML VIAL IV PRN (03:15)
[2025-03-02 08:43] LABS: HEMATOCRIT. 46.8 % (42.0-52.0); HEMOGLOBIN. 15.1 g/dL (14.0-18.0); MEAN PLATELET VOLUME 10.3 fl (7.4-10.4); PLATELET 211 x1000/uL (130-400); RED BLOOD CELL COUNT 6.18 mill/uL (4.7-6.1); RED CELL DISTRIBUTION WIDTH 17.1 % (11.6-14.6)
[2025-03-02 08:45] LABS: CREATININE 0.9 mg/dL (0.6-1.3); UREA NITROGEN BLOOD 28 mg/dL (9-23)
[2025-03-02 12:58] LABS: LYMPHOCYTES % MANUAL 6.0 % (20.0-50.0); MONOCYTES % MANUAL 2.0 % (2.0-8.0); NEUTROPHILS % MANUAL 92.0 % (45.0-75.0)
[2025-03-02 12:59] LABS: PLATELET ESTIMATE NORMAL
[2025-03-02] MEDS: FUROSEMIDE 20MG/2ML VIAL IVP SCH (17:21)
[2025-03-02] MEDS: MELATONIN 3MG TABLET PO SCH (21:53)
[2025-03-03] VITALS (20 sets, daily range): BP systolic 109–133; BP diastolic 60–91; PULSE 68–98; RESP 0–44; TEMP 36.2–37.7; O2SAT 91–100
[2025-03-03 07:34] LABS: CREATININE 0.9 mg/dL (0.6-1.3); HEMATOCRIT. 41.3 % (42.0-52.0); HEMOGLOBIN. 13.3 g/dL (14.0-18.0); MEAN PLATELET VOLUME 10.3 fl (7.4-10.4); PLATELET 182 x1000/uL (130-400); RED BLOOD CELL COUNT 5.47 mill/uL (4.7-6.1); RED CELL DISTRIBUTION WIDTH 16.9 % (11.6-14.6); UREA NITROGEN BLOOD 28 mg/dL (9-23)
[2025-03-03] MEDS: POLYETHYLENE GLYCOL 3350 (17GM) 1 DOSE PACK PO SCH (09:29)
[2025-03-03] MEDS: SULFAMETHOXAZOLE/TRIMETHOPRIM 800/160MG TABLET PO SCH (09:29)
[2025-03-03 14:29] LABS: LYMPHOCYTES % MANUAL 4.0 % (20.0-50.0); MONOCYTES % MANUAL 2.0 % (2.0-8.0); NEUTROPHILS % MANUAL 94.0 % (45.0-75.0); PLATELET ESTIMATE NORMAL
[2025-03-03 17:36] LABS: BG BASE EXCESS 4.1 mmol/L (-2.0-3.0); BG CARBOXYHEMOGLOBIN 1.1 % (0.5-1.5); BG DEOXYHEMOGLOBIN 6.7 % (0.0-5.0); BG FLOW(L/min) 40.00 L/min; BG FRACTION INSPIRED OXYGEN 80; BG HCO3 ACT 27.6 mmol/L (21.0-28.0); BG METHEMOGLOBIN 0.1 % (0.5-1.5); BG OXYGEN SATURATION 93.2 % (94.0-98.0); BG OXYHEMOGLOBIN 92.1 % (94.0-98.0); BG PCO2 37.7 mmHg (35.0-48.0); BG PH 7.482 (7.350-7.450); BG PO2 67.5 mmHg (83.0-108.0); BG SAMPLE SITE RIGHT RADIAL; BG TOTAL HEMOGLOBIN 14.1 g/dL (13.5-17.5); BG VENT MODE HIGH FLOW
[2025-03-03] MEDS: RISPERIDONE 1MG TABLET PO SCH (20:48)
[2025-03-04] VITALS (15 sets, daily range): BP systolic 114–149; BP diastolic 71–90; PULSE 69–90; RESP 10–44; TEMP 36.1–36.9; O2SAT 92–100
[2025-03-04] MEDS: SODIUM CHLORIDE 3% FOR INH 4ML NEB INH SCH (02:17)
[2025-03-04 07:45] LABS: BASOPHILS % 0.1 % (0.0-2.0); EOSINOPHILS % 0.1 % (0.0-5.0); HEMATOCRIT. 41.5 % (42.0-52.0); HEMOGLOBIN. 13.4 g/dL (14.0-18.0); LYMPHOCYTES % 11.7 % (20.0-50.0); MEAN PLATELET VOLUME 10.3 fl (7.4-10.4); MONOCYTES % 2.9 % (2.0-8.0); NEUTROPHILS % 85.2 % (40.0-76.0); PLATELET 168 x1000/uL (130-400); RED BLOOD CELL COUNT 5.45 mill/uL (4.7-6.1); RED CELL DISTRIBUTION WIDTH 17.0 % (11.6-14.6)
[2025-03-04 08:13] LABS: CREATININE 1.1 mg/dL (0.6-1.3); UREA NITROGEN BLOOD 26 mg/dL (9-23)
[2025-03-04] MEDS: LIDOCAINE HCL 1% 10 MG/ML 10ML VIAL ONE (23:53)
[2025-03-05] VITALS (53 sets, daily range): BP systolic 119–148; BP diastolic 73–100; PULSE 68–121; RESP 23–54; TEMP 36.6–37.1; O2SAT 40–99
[2025-03-05 05:32] LABS: CREATININE 0.9 mg/dL (0.6-1.3); UREA NITROGEN BLOOD 25 mg/dL (9-23)
[2025-03-05 06:43] LABS: BASOPHILS % 0.2 % (0.0-2.0); EOSINOPHILS % 0.2 % (0.0-5.0); HEMATOCRIT. 39.0 % (42.0-52.0); HEMOGLOBIN. 12.6 g/dL (14.0-18.0); LYMPHOCYTES % 13.5 % (20.0-50.0); MEAN PLATELET VOLUME 9.9 fl (7.4-10.4); MONOCYTES % 5.9 % (2.0-8.0); NEUTROPHILS % 80.2 % (40.0-76.0); PLATELET 156 x1000/uL (130-400); RED BLOOD CELL COUNT 5.12 mill/uL (4.7-6.1); RED CELL DISTRIBUTION WIDTH 16.8 % (11.6-14.6)
[2025-03-05] MEDS: METHYLPREDNISOLONE SOD SUCC 125MG/2ML (ACT-O-VIAL) IV SCH (09:46)
[2025-03-05 10:04] LABS: BG BASE EXCESS 2.6 mmol/L (-2.0-3.0); BG CARBOXYHEMOGLOBIN 1.5 % (0.5-1.5); BG DEOXYHEMOGLOBIN 10.6 % (0.0-5.0); BG FLOW(L/min) 40.00 L/min; BG FRACTION INSPIRED OXYGEN 30; BG HCO3 ACT 25.8 mmol/L (21.0-28.0); BG METHEMOGLOBIN 0.1 % (0.5-1.5); BG OXYGEN SATURATION 89.2 % (94.0-98.0); BG OXYHEMOGLOBIN 87.8 % (94.0-98.0); BG PCO2 35.3 mmHg (35.0-48.0); BG PH 7.482 (7.350-7.450); BG PO2 56.9 mmHg (83.0-108.0); BG SAMPLE SITE LEFT RADIAL; BG TOTAL HEMOGLOBIN 14.0 g/dL (13.5-17.5); BG VENT MODE HIGH FLOW
[2025-03-05] MEDS: FAMOTIDINE 20MG/2ML VIAL IV SCH (20:59)
[2025-03-06] VITALS (17 sets, daily range): BP systolic 101–134; BP diastolic 74–96; PULSE 80–110; RESP 17–45; TEMP 36.7–37.1; O2SAT 90–97
[2025-03-06 05:34] LABS: CREATININE 1.0 mg/dL (0.6-1.3); UREA NITROGEN BLOOD 24 mg/dL (9-23)
[2025-03-06 06:24] LABS: HEMATOCRIT. 41.9 % (42.0-52.0); HEMOGLOBIN. 13.7 g/dL (14.0-18.0); MEAN PLATELET VOLUME 9.9 fl (7.4-10.4); PLATELET 167 x1000/uL (130-400); RED BLOOD CELL COUNT 5.53 mill/uL (4.7-6.1); RED CELL DISTRIBUTION WIDTH 17.0 % (11.6-14.6)
[2025-03-06 14:20] LABS: BAND% 5.0 % (1.0-6.0); LYMPHOCYTES % MANUAL 1.0 % (20.0-50.0); MONOCYTES % MANUAL 1.0 % (2.0-8.0); NEUTROPHILS % MANUAL 93.0 % (45.0-75.0); PLATELET ESTIMATE NORMAL
[2025-03-06] MEDS: IPRATROPIUM/ALBUTEROL 0.5-3(2.5)MG/3ML NEB HHN PRN (16:20)
[2025-03-07] VITALS (18 sets, daily range): BP systolic 94–153; BP diastolic 67–98; PULSE 68–101; RESP 11–46; TEMP 36.4–36.8; O2SAT 87–100
[2025-03-07] MEDS: SENNOSIDES/DOCUSATE SOD 8.6/50MG TABLET PO PRN (03:25)
[2025-03-07 06:00] LABS: HEMATOCRIT. 39.3 % (42.0-52.0); HEMOGLOBIN. 12.6 g/dL (14.0-18.0); MEAN PLATELET VOLUME 10.2 fl (7.4-10.4); PLATELET 153 x1000/uL (130-400); RED BLOOD CELL COUNT 5.16 mill/uL (4.7-6.1); RED CELL DISTRIBUTION WIDTH 17.1 % (11.6-14.6)
[2025-03-07 06:02] LABS: CREATININE 1.1 mg/dL (0.6-1.3); UREA NITROGEN BLOOD 25 mg/dL (9-23)
[2025-03-07] MEDS: GUAIFENESIN 200MG/10ML SUGAR FREE UDC PO PRN (09:10)
[2025-03-07 11:19] LABS: BG BASE EXCESS 3.3 mmol/L (-2.0-3.0); BG CARBOXYHEMOGLOBIN 0.6 % (0.5-1.5); BG DEOXYHEMOGLOBIN 6.9 % (0.0-5.0); BG FLOW(L/min) 40.00 L/min; BG FRACTION INSPIRED OXYGEN 95; BG HCO3 ACT 27.7 mmol/L (21.0-28.0); BG METHEMOGLOBIN 0.3 % (0.5-1.5); BG OXYGEN SATURATION 93.0 % (94.0-98.0); BG OXYHEMOGLOBIN 92.2 % (94.0-98.0); BG PCO2 41.4 mmHg (35.0-48.0); BG PH 7.444 (7.350-7.450); BG PO2 68.2 mmHg (83.0-108.0); BG SAMPLE SITE RIGHT RADIAL; BG TOTAL HEMOGLOBIN 13.9 g/dL (13.5-17.5); BG VENT MODE HIGH FLOW
[2025-03-07 12:56] LABS: BAND% 6.0 % (1.0-6.0); LYMPHOCYTES % MANUAL 2.0 % (20.0-50.0); MONOCYTES % MANUAL 2.0 % (2.0-8.0); NEUTROPHILS % MANUAL 90.0 % (45.0-75.0); PLATELET ESTIMATE NORMAL
[2025-03-07] MEDS: ONDANSETRON HCL 4MG/2ML INJ IV PRN (13:36)
[2025-03-08] VITALS (15 sets, daily range): BP systolic 99–129; BP diastolic 55–93; PULSE 70–105; RESP 18–46; TEMP 36.3–36.8; O2SAT 88–99
[2025-03-08 08:52] LABS: PLATELET 145 x1000/uL (130-400); RED BLOOD CELL COUNT 5.12 mill/uL (4.7-6.1); RED CELL DISTRIBUTION WIDTH 17.0 % (11.6-14.6)
[2025-03-08 09:09] LABS: CREATININE 1.1 mg/dL (0.6-1.3)
[2025-03-08 09:10] LABS: UREA NITROGEN BLOOD 20 mg/dL (9-23)
[2025-03-08 20:42] LABS: PLATELET 160 x1000/uL (130-400); RED BLOOD CELL COUNT 5.41 mill/uL (4.7-6.1); RED CELL DISTRIBUTION WIDTH 17.1 % (11.6-14.6)
[2025-03-08 20:53] LABS: CREATININE 1.1 mg/dL (0.6-1.3); UREA NITROGEN BLOOD 20 mg/dL (9-23)
[2025-03-09] VITALS (17 sets, daily range): BP systolic 89–128; BP diastolic 42–73; PULSE 74–99; RESP 12–49; TEMP 36.7–37; O2SAT 91–100
[2025-03-09] MEDS: LORAZEPAM 2MG/ML UD SYRINGE ONE (07:34)
[2025-03-09] MEDS: LORAZEPAM 2MG/ML UD SYRINGE IV SCH (08:15)
[2025-03-09] MEDS: IPRATROPIUM/ALBUTEROL 0.5-3(2.5)MG/3ML NEB HHN SCH (08:15)
[2025-03-09] MEDS ORDERED: LEVETIRACETAM 1,500MG in NACL 100ML PREMIX IV SCH (09:00)
[2025-03-09 09:52] LABS: BG BASE EXCESS 2.6 mmol/L (-2.0-3.0); BG CARBOXYHEMOGLOBIN 0.5 % (0.5-1.5); BG DEOXYHEMOGLOBIN 1.3 % (0.0-5.0); BG FLOW(L/min) 40.00 L/min; BG FRACTION INSPIRED OXYGEN 100; BG HCO3 ACT 28.0 mmol/L (21.0-28.0); BG METHEMOGLOBIN 0.3 % (0.5-1.5); BG OXYGEN SATURATION 98.7 % (94.0-98.0); BG OXYHEMOGLOBIN 97.9 % (94.0-98.0); BG PCO2 46.1 mmHg (35.0-48.0); BG PH 7.401 (7.350-7.450); BG PO2 136.7 mmHg (83.0-108.0); BG SAMPLE SITE RIGHT RADIAL; BG TOTAL HEMOGLOBIN 12.5 g/dL (13.5-17.5); BG VENT MODE HIGH FLOW
[2025-03-09] MEDS ORDERED: LORAZEPAM 2MG/ML UD SYRINGE IV PRN (10:00)
[2025-03-09] MEDS: LEVETIRACETAM 1500MG PREMIX 100 ML IV SCH (13:17)
[2025-03-09] MEDS: MEROPENEM 1G/100ML 100 ML IV SCH (18:04)
[2025-03-10] VITALS (15 sets, daily range): BP systolic 90–115; BP diastolic 63–84; PULSE 58–93; RESP 18–35; TEMP 36.4–36.7; O2SAT 90–98
[2025-03-10 05:34] LABS: PLATELET 145 x1000/uL (130-400); RED BLOOD CELL COUNT 4.73 mill/uL (4.7-6.1); RED CELL DISTRIBUTION WIDTH 16.9 % (11.6-14.6)
[2025-03-10 06:06] LABS: CREATININE 1.0 mg/dL (0.6-1.3); UREA NITROGEN BLOOD 28 mg/dL (9-23)
[2025-03-10] MEDS: LACTULOSE 20G/30ML UDC PO SCH (18:38)
[2025-03-11] VITALS (21 sets, daily range): BP systolic 33–141; BP diastolic 22–106; PULSE 63–112; RESP 0–52; TEMP 36.4–37.1; O2SAT 34–98
[2025-03-11 08:35] LABS: PLATELET 127 x1000/uL (130-400); RED BLOOD CELL COUNT 5.01 mill/uL (4.7-6.1); RED CELL DISTRIBUTION WIDTH 17.1 % (11.6-14.6)
[2025-03-11 08:58] LABS: CREATININE 0.8 mg/dL (0.6-1.3)
[2025-03-11 08:59] LABS: UREA NITROGEN BLOOD 20 mg/dL (9-23)
[2025-03-11 09:46] LABS: BG FLOW(L/min) 5.00 L/min; BG FRACTION INSPIRED OXYGEN 40; BG SAMPLE SITE LEFT RADIAL; BG VENT MODE NASAL CANNULA
[2025-03-11 09:47] LABS: BG BASE EXCESS 5.9 mmol/L (-2.0-3.0); BG CARBOXYHEMOGLOBIN 0.8 % (0.5-1.5); BG DEOXYHEMOGLOBIN 12.4 % (0.0-5.0); BG HCO3 ACT 30.2 mmol/L (21.0-28.0); BG METHEMOGLOBIN 0.3 % (0.5-1.5); BG OXYGEN SATURATION 87.5 % (94.0-98.0); BG OXYHEMOGLOBIN 86.5 % (94.0-98.0); BG PCO2 42.5 mmHg (35.0-48.0); BG PH 7.469 (7.350-7.450); BG PO2 48.9 mmHg (83.0-108.0); BG TOTAL HEMOGLOBIN 13.9 g/dL (13.5-17.5)
[2025-03-11] MEDS: LACTULOSE 20G/30ML UDC PO SCH (13:36)
[2025-03-12] VITALS (17 sets, daily range): BP systolic 122–171; BP diastolic 83–106; PULSE 83–110; RESP 15–42; TEMP 36.3–37.1; O2SAT 91–99
[2025-03-12 07:49] LABS: PLATELET 147 x1000/uL (130-400); RED BLOOD CELL COUNT 5.52 mill/uL (4.7-6.1); RED CELL DISTRIBUTION WIDTH 17.1 % (11.6-14.6)
[2025-03-12 08:08] LABS: CREATININE 0.8 mg/dL (0.6-1.3); UREA NITROGEN BLOOD 23 mg/dL (9-23)
[2025-03-12 11:08] LABS: BG BASE EXCESS 3.2 mmol/L (-2.0-3.0); BG CARBOXYHEMOGLOBIN 0.3 % (0.5-1.5); BG DEOXYHEMOGLOBIN 6.0 % (0.0-5.0); BG FLOW(L/min) 20.00 L/min; BG FRACTION INSPIRED OXYGEN 100; BG HCO3 ACT 27.0 mmol/L (21.0-28.0); BG METHEMOGLOBIN 0.3 % (0.5-1.5); BG OXYGEN SATURATION 94.0 % (94.0-98.0); BG OXYHEMOGLOBIN 93.4 % (94.0-98.0); BG PCO2 38.8 mmHg (35.0-48.0); BG PH 7.461 (7.350-7.450); BG PO2 71.1 mmHg (83.0-108.0); BG SAMPLE SITE RIGHT RADIAL; BG TOTAL HEMOGLOBIN 14.4 g/dL (13.5-17.5); BG VENT MODE HIGH FLOW
[2025-03-13] VITALS (16 sets, daily range): BP systolic 96–150; BP diastolic 74–92; PULSE 76–115; RESP 24–42; TEMP 36.4–37; O2SAT 90–98
[2025-03-13] MEDS: RISPERIDONE 1MG TABLET PO SCH (20:37)
[2025-03-14] VITALS (16 sets, daily range): BP systolic 88–161; BP diastolic 68–96; PULSE 87–104; RESP 8–45; TEMP 36.4–36.9; O2SAT 92–98
[2025-03-14] MEDS: LORAZEPAM 0.5MG TABLET PO PRN (23:08)
[2025-03-15] VITALS (16 sets, daily range): BP systolic 94–131; BP diastolic 68–92; PULSE 60–97; RESP 16–35; TEMP 36.2–36.8; O2SAT 85–100
[2025-03-15 09:21] LABS: BG BASE EXCESS 3.0 mmol/L (-2.0-3.0); BG CARBOXYHEMOGLOBIN 0.2 % (0.5-1.5); BG DEOXYHEMOGLOBIN 2.4 % (0.0-5.0); BG FLOW(L/min) 20.00 L/min; BG FRACTION INSPIRED OXYGEN 100; BG HCO3 ACT 27.5 mmol/L (21.0-28.0); BG METHEMOGLOBIN 0.3 % (0.5-1.5); BG OXYGEN SATURATION 97.6 % (94.0-98.0); BG OXYHEMOGLOBIN 97.1 % (94.0-98.0); BG PCO2 41.8 mmHg (35.0-48.0); BG PH 7.436 (7.350-7.450); BG PO2 101.3 mmHg (83.0-108.0); BG SAMPLE SITE LEFT RADIAL; BG TOTAL HEMOGLOBIN 11.9 g/dL (13.5-17.5); BG VENT MODE HIGH FLOW
[2025-03-15] MEDS: IPRATROPIUM/ALBUTEROL 0.5-3(2.5)MG/3ML NEB HHN SCH (14:17)
[2025-03-15] MEDS: PIPERACILLIN/TAZO 3.375G/50ML 50 ML IV SCH (17:53)
[2025-03-16] VITALS (17 sets, daily range): BP systolic 100–152; BP diastolic 66–104; PULSE 62–105; RESP 17–38; TEMP 36.3–36.7; O2SAT 86–100
[2025-03-16 06:54] LABS: HEMATOCRIT. 34.7 % (42.0-52.0); HEMOGLOBIN. 11.3 g/dL (14.0-18.0); MEAN PLATELET VOLUME 9.0 fl (7.4-10.4); PLATELET 128 x1000/uL (130-400); RED BLOOD CELL COUNT 4.54 mill/uL (4.7-6.1); RED CELL DISTRIBUTION WIDTH 17.5 % (11.6-14.6)
[2025-03-16 06:55] LABS: CREATININE 0.7 mg/dL (0.6-1.3)
[2025-03-16 06:58] LABS: UREA NITROGEN BLOOD 22 mg/dL (9-23)
[2025-03-16 07:00] LABS: PHOSPHORUS 1.8 mg/dL (2.5-4.9)
[2025-03-16] MEDS ORDERED: MEROPENEM 1,000 MG in SODIUM CHLORIDE 0.9% 100 ML IV SCH (09:15)
[2025-03-16] MEDS: MEROPENEM 1,000 MG in SODIUM CHLORIDE 0.9% 100 ML IV SCH (10:38)
[2025-03-16 16:49] LABS: LYMPHOCYTES % MANUAL 5.0 % (20.0-50.0); NEUTROPHILS % MANUAL 95.0 % (45.0-75.0); PLATELET ESTIMATE NORMAL
[2025-03-16] MEDS: SODIUM PHOSPHATE 20 MMOL in DEXT 5% WATER 243.3333 ML IV SCH (17:33)
[2025-03-17] VITALS (24 sets, daily range): BP systolic 94–134; BP diastolic 66–100; PULSE 61–101; RESP 16–41; TEMP 36.4–37.1; O2SAT 87–98
[2025-03-17 07:13] LABS: HEMATOCRIT. 38.2 % (42.0-52.0); HEMOGLOBIN. 12.3 g/dL (14.0-18.0); MEAN PLATELET VOLUME 8.9 fl (7.4-10.4); PLATELET 146 x1000/uL (130-400); RED BLOOD CELL COUNT 5.02 mill/uL (4.7-6.1); RED CELL DISTRIBUTION WIDTH 17.7 % (11.6-14.6)
[2025-03-17 07:42] LABS: CREATININE 0.7 mg/dL (0.6-1.3); UREA NITROGEN BLOOD 21 mg/dL (9-23)
[2025-03-17 08:44] LABS: BG BASE EXCESS 6.6 mmol/L (-2.0-3.0); BG CARBOXYHEMOGLOBIN 0.6 % (0.5-1.5); BG DEOXYHEMOGLOBIN 1.9 % (0.0-5.0); BG FLOW(L/min) 20.00 L/min; BG FRACTION INSPIRED OXYGEN 100; BG HCO3 ACT 31.6 mmol/L (21.0-28.0); BG METHEMOGLOBIN 0.1 % (0.5-1.5); BG OXYGEN SATURATION 98.1 % (94.0-98.0); BG OXYHEMOGLOBIN 97.4 % (94.0-98.0); BG PCO2 47.1 mmHg (35.0-48.0); BG PH 7.445 (7.350-7.450); BG PO2 113.7 mmHg (83.0-108.0); BG SAMPLE SITE RIGHT BRACHIAL; BG TOTAL HEMOGLOBIN 11.7 g/dL (13.5-17.5); BG VENT MODE HIGH FLOW
[2025-03-17 14:15] LABS: BAND% 3.0 % (1.0-6.0); EOSINOPHILS % MANUAL 1.0 % (0.0-5.0); LYMPHOCYTES % MANUAL 6.0 % (20.0-50.0); MONOCYTES % MANUAL 1.0 % (2.0-8.0); NEUTROPHILS % MANUAL 89.0 % (45.0-75.0)
[2025-03-17 14:19] LABS: PLATELET ESTIMATE NORMAL
[2025-03-18] VITALS (16 sets, daily range): BP systolic 88–111; BP diastolic 58–83; PULSE 63–102; RESP 20–46; TEMP 36.4–37; O2SAT 90–98
[2025-03-18 07:44] LABS: BASOPHILS % 0.1 % (0.0-2.0); EOSINOPHILS % 0.6 % (0.0-5.0); HEMATOCRIT. 34.7 % (42.0-52.0); HEMOGLOBIN. 11.3 g/dL (14.0-18.0); LYMPHOCYTES % 9.4 % (20.0-50.0); MEAN PLATELET VOLUME 9.2 fl (7.4-10.4); MONOCYTES % 5.6 % (2.0-8.0); NEUTROPHILS % 84.3 % (40.0-76.0); PLATELET 145 x1000/uL (130-400); RED BLOOD CELL COUNT 4.57 mill/uL (4.7-6.1); RED CELL DISTRIBUTION WIDTH 17.5 % (11.6-14.6)
[2025-03-18 08:07] LABS: CREATININE 0.8 mg/dL (0.6-1.3); UREA NITROGEN BLOOD 22 mg/dL (9-23)
[2025-03-19] VITALS (19 sets, daily range): BP systolic 95–125; BP diastolic 58–89; PULSE 56–124; RESP 19–36; TEMP 36.2–37; O2SAT 88–100
[2025-03-19] MEDS ORDERED: ENOXAPARIN 60MG/0.6ML SYR SUBCUT SCH (00:30)
[2025-03-19 03:11] LABS: INR 1.0
[2025-03-19 06:54] LABS: CREATININE 0.8 mg/dL (0.6-1.3); UREA NITROGEN BLOOD 23 mg/dL (9-23)
[2025-03-19 07:07] LABS: HEMATOCRIT. 37.0 % (42.0-52.0); HEMOGLOBIN. 12.0 g/dL (14.0-18.0); MEAN PLATELET VOLUME 9.3 fl (7.4-10.4); PLATELET 165 x1000/uL (130-400); RED BLOOD CELL COUNT 4.85 mill/uL (4.7-6.1); RED CELL DISTRIBUTION WIDTH 17.8 % (11.6-14.6)
[2025-03-19] MEDS: METHYLPREDNISOLONE SOD SUCC 40MG/ML (ACT-O-VIAL) IV SCH (08:26)
[2025-03-19] MEDS: ENOXAPARIN 40MG/0.4ML SYR SUBCUT SCH (08:26)
[2025-03-19 09:07] LABS: BG BASE EXCESS 9.8 mmol/L (-2.0-3.0); BG CARBOXYHEMOGLOBIN 1.1 % (0.5-1.5); BG DEOXYHEMOGLOBIN 8.1 % (0.0-5.0); BG FRACTION INSPIRED OXYGEN 32; BG HCO3 ACT 35.9 mmol/L (21.0-28.0); BG METHEMOGLOBIN 0.0 % (0.5-1.5); BG OXYGEN SATURATION 91.8 % (94.0-98.0); BG OXYHEMOGLOBIN 90.8 % (94.0-98.0); BG PCO2 55.7 mmHg (35.0-48.0); BG PH 7.427 (7.350-7.450); BG PO2 61.5 mmHg (83.0-108.0); BG SAMPLE SITE RIGHT RADIAL; BG TOTAL HEMOGLOBIN 11.7 g/dL (13.5-17.5); BG VENT MODE NASAL CANNULA
[2025-03-19] MEDS: MEROPENEM 1G/100ML 100 ML IV SCH (10:54)
[2025-03-19 17:38] LABS: LYMPHOCYTES % MANUAL 4.0 % (20.0-50.0); MONOCYTES % MANUAL 3.0 % (2.0-8.0); NEUTROPHILS % MANUAL 93.0 % (45.0-75.0); PLATELET ESTIMATE NORMAL
[2025-03-20] VITALS (16 sets, daily range): BP systolic 104–133; BP diastolic 68–91; PULSE 58–102; RESP 20–36; TEMP 36.2–36.8; O2SAT 88–98
[2025-03-20 10:46] LABS: BG BASE EXCESS 2.7 mmol/L (-2.0-3.0); BG CARBOXYHEMOGLOBIN 0.5 % (0.5-1.5); BG DEOXYHEMOGLOBIN 6.5 % (0.0-5.0); BG FLOW(L/min) 25.00 L/min; BG FRACTION INSPIRED OXYGEN 90; BG HCO3 ACT 27.2 mmol/L (21.0-28.0); BG METHEMOGLOBIN 0.3 % (0.5-1.5); BG OXYGEN SATURATION 93.4 % (94.0-98.0); BG OXYHEMOGLOBIN 92.7 % (94.0-98.0); BG PCO2 41.5 mmHg (35.0-48.0); BG PH 7.435 (7.350-7.450); BG PO2 70.3 mmHg (83.0-108.0); BG SAMPLE SITE LEFT RADIAL; BG TOTAL HEMOGLOBIN 12.8 g/dL (13.5-17.5); BG VENT MODE HIGH FLOW
[2025-03-21] VITALS (68 sets, daily range): BP systolic 71–197; BP diastolic 58–143; PULSE 57–145; RESP 18–48; TEMP 35.6–36.8; O2SAT 84–100
[2025-03-21] MEDS: IPRATROPIUM/ALBUTEROL 0.5-3(2.5)MG/3ML NEB HHN PRN (09:50)
[2025-03-21] MEDS ORDERED: LIDOCAINE HCL 1% 10 MG/ML 10ML VIAL ONE (10:23)
[2025-03-21 10:35] LABS: BG BASE EXCESS 3.3 mmol/L (-2.0-3.0); BG CARBOXYHEMOGLOBIN 0.5 % (0.5-1.5); BG DEOXYHEMOGLOBIN 5.4 % (0.0-5.0); BG FRACTION INSPIRED OXYGEN 100; BG HCO3 ACT 28.6 mmol/L (21.0-28.0); BG METHEMOGLOBIN 0.3 % (0.5-1.5); BG OXYGEN SATURATION 94.6 % (94.0-98.0); BG OXYHEMOGLOBIN 93.8 % (94.0-98.0); BG PCO2 46.2 mmHg (35.0-48.0); BG PH 7.410 (7.350-7.450); BG PO2 75.5 mmHg (83.0-108.0); BG SAMPLE SITE RIGHT RADIAL; BG TOTAL HEMOGLOBIN 13.9 g/dL (13.5-17.5); BG VENT MODE MASK - BIPAP; BG VENT RATE 15.0 set
[2025-03-21] MEDS: PROPOFOL 10MG/ML 100ML 100 ML IV PRN (13:11)
[2025-03-21 14:05] LABS: BG BASE EXCESS 0.8 mmol/L (-2.0-3.0); BG CARBOXYHEMOGLOBIN 0.7 % (0.5-1.5); BG DEOXYHEMOGLOBIN 8.8 % (0.0-5.0); BG FRACTION INSPIRED OXYGEN 100; BG HCO3 ACT 28.0 mmol/L (21.0-28.0); BG METHEMOGLOBIN 0.3 % (0.5-1.5); BG OXYGEN SATURATION 91.1 % (94.0-98.0); BG OXYHEMOGLOBIN 90.2 % (94.0-98.0); BG PCO2 54.8 mmHg (35.0-48.0); BG PEEP (cmH2O) 5.0 cmH2O; BG PH 7.326 (7.350-7.450); BG PO2 69.2 mmHg (83.0-108.0); BG SAMPLE SITE RIGHT RADIAL; BG TIDAL VOLUME(mL) 500.0 mL; BG TOTAL HEMOGLOBIN 14.7 g/dL (13.5-17.5); BG VENT MODE VENT - AC; BG VENT RATE 20.0 set
[2025-03-21] MEDS ORDERED: PHENYLEPHRINE 50 MG in DEXT 5% WATER 245 ML IV PRN (14:15)
[2025-03-21] MEDS: SODIUM CHLORIDE 0.9% 500 ML IV ONE ×2 (14:15→15:15)
[2025-03-21 15:34] LABS: HEMATOCRIT. 38.4 % (42.0-52.0); HEMOGLOBIN. 12.3 g/dL (14.0-18.0); MEAN PLATELET VOLUME 9.2 fl (7.4-10.4); PLATELET 206 x1000/uL (130-400); RED BLOOD CELL COUNT 4.97 mill/uL (4.7-6.1); RED CELL DISTRIBUTION WIDTH 18.2 % (11.6-14.6)
[2025-03-21 15:48] LABS: CREATININE 0.8 mg/dL (0.6-1.3); UREA NITROGEN BLOOD 23 mg/dL (9-23)
[2025-03-21 15:50] LABS: ASPARTATE AMINOTRANSFERASE 90 IU/L (<34); BILIRUBIN TOTAL 0.5 mg/dL (0.1-1.0); PROTEIN TOTAL 5.0 g/dL (6.0-8.3)
[2025-03-21 16:15] LABS: LYMPHOCYTES % MANUAL 4.0 % (20.0-50.0); MONOCYTES % MANUAL 3.0 % (2.0-8.0); NEUTROPHILS % MANUAL 93.0 % (45.0-75.0); PLATELET ESTIMATE NORMAL
[2025-03-21] MEDS: ACETYLCYSTEINE 200MG/ML 20% VIAL 4ML INH SCH (16:21)
[2025-03-21] MEDS: IPRATROPIUM/ALBUTEROL 0.5-3(2.5)MG/3ML NEB HHN SCH (16:21)
[2025-03-21] MEDS: ENOXAPARIN 60MG/0.6ML SYR SUBCUT SCH (22:07)
[2025-03-21] MEDS: MIDODRINE HCL 5MG TABLET PO PRN (23:05)
[2025-03-22] VITALS (100 sets, daily range): BP systolic 75–130; BP diastolic 59–118; PULSE 43–74; RESP 16–24; TEMP 36.1–36.7; O2SAT 91–100
[2025-03-22] MEDS: PHENYLEPHRINE 50MG/250ML PMX 250 ML IV PRN (00:51)
[2025-03-22] MEDS ORDERED: NOREPINEPHRINE 8MG/250ML PMX 250 ML IV PRN (04:30)
[2025-03-22 05:49] LABS: CREATININE 0.7 mg/dL (0.6-1.3)
[2025-03-22 05:50] LABS: BASOPHILS % 0.0 % (0.0-2.0); EOSINOPHILS % 0.2 % (0.0-5.0); HEMATOCRIT. 37.4 % (42.0-52.0); HEMOGLOBIN. 12.1 g/dL (14.0-18.0); LYMPHOCYTES % 9.3 % (20.0-50.0); MEAN PLATELET VOLUME 9.3 fl (7.4-10.4); MONOCYTES % 2.3 % (2.0-8.0); NEUTROPHILS % 88.2 % (40.0-76.0); PLATELET 198 x1000/uL (130-400); RED BLOOD CELL COUNT 4.89 mill/uL (4.7-6.1); RED CELL DISTRIBUTION WIDTH 18.2 % (11.6-14.6); TRIGLYCERIDE 79 mg/dL (0-150); UREA NITROGEN BLOOD 20 mg/dL (9-23)
[2025-03-22 05:52] LABS: PHOSPHORUS 2.3 mg/dL (2.5-4.9)
[2025-03-22 09:44] LABS: BG BASE EXCESS 2.9 mmol/L (-2.0-3.0); BG CARBOXYHEMOGLOBIN 0.6 % (0.5-1.5); BG DEOXYHEMOGLOBIN 6.4 % (0.0-5.0); BG FRACTION INSPIRED OXYGEN 100; BG HCO3 ACT 26.7 mmol/L (21.0-28.0); BG METHEMOGLOBIN 0.1 % (0.5-1.5); BG OXYGEN SATURATION 93.6 % (94.0-98.0); BG OXYHEMOGLOBIN 92.9 % (94.0-98.0); BG PCO2 38.0 mmHg (35.0-48.0); BG PEEP (cmH2O) 5.0 cmH2O; BG PH 7.465 (7.350-7.450); BG PO2 69.1 mmHg (83.0-108.0); BG SAMPLE SITE RIGHT RADIAL; BG TIDAL VOLUME(mL) 500.0 mL; BG TOTAL HEMOGLOBIN 11.8 g/dL (13.5-17.5); BG VENT MODE VENT - AC; BG VENT RATE 20.0 set
[2025-03-22] MEDS: PROPOFOL 10MG/ML 100ML 100 ML IV PRN (14:44)
[2025-03-22] MEDS: GUAIFENESIN 200MG/10ML SUGAR FREE UDC PO SCH (17:42)
[2025-03-22] MEDS: SODIUM CHLORIDE 0.9% 500 ML IV ONE (19:57)
[2025-03-23] VITALS (101 sets, daily range): BP systolic 75–121; BP diastolic 58–79; PULSE 44–81; RESP 12–23; TEMP 36.2–37.1; O2SAT 90–100
[2025-03-23 05:12] LABS: PLATELET 196 x1000/uL (130-400); RED BLOOD CELL COUNT 4.75 mill/uL (4.7-6.1); RED CELL DISTRIBUTION WIDTH 18.7 % (11.6-14.6)
[2025-03-23 05:19] LABS: CREATININE 0.6 mg/dL (0.6-1.3); TRIGLYCERIDE 101 mg/dL (0-150); UREA NITROGEN BLOOD 16 mg/dL (9-23)
[2025-03-23 05:21] LABS: PHOSPHORUS 2.5 mg/dL (2.5-4.9)
[2025-03-23 09:21] LABS: BG BASE EXCESS 2.6 mmol/L (-2.0-3.0); BG CARBOXYHEMOGLOBIN 0.6 % (0.5-1.5); BG DEOXYHEMOGLOBIN 6.0 % (0.0-5.0); BG FRACTION INSPIRED OXYGEN 100; BG HCO3 ACT 27.5 mmol/L (21.0-28.0); BG METHEMOGLOBIN 0.1 % (0.5-1.5); BG OXYGEN SATURATION 94.0 % (94.0-98.0); BG OXYHEMOGLOBIN 93.3 % (94.0-98.0); BG PCO2 43.5 mmHg (35.0-48.0); BG PEEP (cmH2O) 8.0 cmH2O; BG PH 7.419 (7.350-7.450); BG PO2 74.7 mmHg (83.0-108.0); BG SAMPLE SITE RIGHT RADIAL; BG TIDAL VOLUME(mL) 500.0 mL; BG TOTAL HEMOGLOBIN 12.6 g/dL (13.5-17.5); BG VENT MODE VENT - AC; BG VENT RATE 16.0 set
[2025-03-23] MEDS: LACTATED RINGERS 1,000 ML IV SCH (09:54)
[2025-03-23] MEDS: ENOXAPARIN 60MG/0.6ML SYR SUBCUT SCH ×2 (10:03→21:49)
[2025-03-23] MEDS ORDERED: LACTATED RINGERS 1,000 ML IV SCH (13:00)
[2025-03-23] MEDS: HYDROCORTISONE SOD SUCCINATE 100 MG/2 ML VIAL IV SCH (13:58)
[2025-03-23] MEDS: MIDAZOLAM 100MG/100ML PMX 100 ML IV PRN (14:49)
[2025-03-23] MEDS: FLUDROCORTISONE ACETATE 0.1MG TABLET PO SCH (15:44)
[2025-03-23] MEDS: RISPERIDONE 0.5MG TABLET PO SCH (21:12)
[2025-03-24] VITALS (104 sets, daily range): BP systolic 87–164; BP diastolic 60–90; PULSE 35–68; RESP 16–26; TEMP 36.4–37; O2SAT 89–100
[2025-03-24 05:43] LABS: PLATELET 205 x1000/uL (130-400); RED BLOOD CELL COUNT 4.68 mill/uL (4.7-6.1); RED CELL DISTRIBUTION WIDTH 18.3 % (11.6-14.6)
[2025-03-24 05:54] LABS: CREATININE 0.6 mg/dL (0.6-1.3); UREA NITROGEN BLOOD 17 mg/dL (9-23)
[2025-03-24] MEDS ORDERED: ATROPINE SULFATE 1MG/10ML SYR IV PRN (18:15)
[2025-03-25] VITALS (104 sets, daily range): BP systolic 107–149; BP diastolic 63–110; PULSE 37–122; RESP 15–36; TEMP 36.2–37.1; O2SAT 65–100
[2025-03-25 06:02] LABS: PLATELET 90 x1000/uL (130-400); RED BLOOD CELL COUNT 4.17 mill/uL (4.7-6.1); RED CELL DISTRIBUTION WIDTH 18.8 % (11.6-14.6)
[2025-03-25 06:13] LABS: CREATININE 0.5 mg/dL (0.6-1.3); UREA NITROGEN BLOOD 20 mg/dL (9-23)
[2025-03-25 08:27] LABS: BG BASE EXCESS 4.3 mmol/L (-2.0-3.0); BG CARBOXYHEMOGLOBIN 0.0 % (0.5-1.5); BG DEOXYHEMOGLOBIN 5.4 % (0.0-5.0); BG FRACTION INSPIRED OXYGEN 90; BG HCO3 ACT 29.3 mmol/L (21.0-28.0); BG METHEMOGLOBIN 0.3 % (0.5-1.5); BG OXYGEN SATURATION 94.6 % (94.0-98.0); BG OXYHEMOGLOBIN 94.3 % (94.0-98.0); BG PCO2 45.6 mmHg (35.0-48.0); BG PEEP (cmH2O) 10.0 cmH2O; BG PH 7.426 (7.350-7.450); BG PO2 76.1 mmHg (83.0-108.0); BG SAMPLE SITE RIGHT RADIAL; BG TIDAL VOLUME(mL) 500.0 mL; BG TOTAL HEMOGLOBIN 11.1 g/dL (13.5-17.5); BG VENT MODE PRVC; BG VENT RATE 16.0 set
[2025-03-26] VITALS (99 sets, daily range): BP systolic 93–154; BP diastolic 73–115; PULSE 44–121; RESP 16–39; TEMP 36.1–37.1; O2SAT 84–98
[2025-03-26] MEDS: DEXMEDETOMIDINE 250 ML IV PRN (01:57)
[2025-03-26 05:35] LABS: CREATININE 0.5 mg/dL (0.6-1.3); UREA NITROGEN BLOOD 21 mg/dL (9-23)
[2025-03-26 05:42] LABS: PLATELET 186 x1000/uL (130-400); RED BLOOD CELL COUNT 4.60 mill/uL (4.7-6.1); RED CELL DISTRIBUTION WIDTH 18.7 % (11.6-14.6)
[2025-03-26] MEDS: LIDOCAINE HCL 1% 10 MG/ML 10ML VIAL ONE (08:11)
[2025-03-26] MEDS: IOHEXOL-350 100 ML BOTTLE ONE (08:11)
[2025-03-26] MEDS: RISPERIDONE 0.5MG TABLET PO SCH (08:46)
[2025-03-26] MEDS: PROPOFOL 10MG/ML 100ML 100 ML IV PRN (08:48)
[2025-03-26 09:19] LABS: BG BASE EXCESS 2.9 mmol/L (-2.0-3.0); BG CARBOXYHEMOGLOBIN 1.1 % (0.5-1.5); BG DEOXYHEMOGLOBIN 9.9 % (0.0-5.0); BG FRACTION INSPIRED OXYGEN 100; BG HCO3 ACT 27.0 mmol/L (21.0-28.0); BG METHEMOGLOBIN 0.3 % (0.5-1.5); BG OXYGEN SATURATION 90.0 % (94.0-98.0); BG OXYHEMOGLOBIN 88.7 % (94.0-98.0); BG PCO2 39.9 mmHg (35.0-48.0); BG PEEP (cmH2O) 10.0 cmH2O; BG PH 7.449 (7.350-7.450); BG PO2 57.2 mmHg (83.0-108.0); BG SAMPLE SITE RIGHT BRACHIAL; BG TIDAL VOLUME(mL) 500.0 mL; BG TOTAL HEMOGLOBIN 12.1 g/dL (13.5-17.5); BG TOTAL RESPIRATORY RATE 18 b/min; BG VENT MODE AC/PRVC; BG VENT RATE 16.0 set
[2025-03-26] MEDS: FENTANYL 2500MCG/250ML PMX 250 ML IV PRN (17:38)
[2025-03-27] VITALS (68 sets, daily range): BP systolic 35–172; BP diastolic 12–111; PULSE 0–126; RESP 15–34; TEMP 36.4–36.6; O2SAT 82–100
[2025-03-27 05:19] LABS: HEMATOCRIT. 35.6 % (42.0-52.0); HEMOGLOBIN. 11.6 g/dL (14.0-18.0); MEAN PLATELET VOLUME 10.9 fl (7.4-10.4); PLATELET 178 x1000/uL (130-400); RED BLOOD CELL COUNT 4.61 mill/uL (4.7-6.1); RED CELL DISTRIBUTION WIDTH 19.4 % (11.6-14.6)
[2025-03-27 05:25] LABS: CREATININE 0.5 mg/dL (0.6-1.3)
[2025-03-27 05:26] LABS: TRIGLYCERIDE 253 mg/dL (0-150); UREA NITROGEN BLOOD 20 mg/dL (9-23)
[2025-03-27 08:59] LABS: BG BASE EXCESS 0.9 mmol/L (-2.0-3.0); BG CARBOXYHEMOGLOBIN 0.8 % (0.5-1.5); BG DEOXYHEMOGLOBIN 7.1 % (0.0-5.0); BG FRACTION INSPIRED OXYGEN 100; BG HCO3 ACT 28.3 mmol/L (21.0-28.0); BG METHEMOGLOBIN 0.1 % (0.5-1.5); BG OXYGEN SATURATION 92.8 % (94.0-98.0); BG OXYHEMOGLOBIN 92.0 % (94.0-98.0); BG PCO2 57.4 mmHg (35.0-48.0); BG PEEP (cmH2O) 14.0 cmH2O; BG PH 7.311 (7.350-7.450); BG PO2 76.9 mmHg (83.0-108.0); BG SAMPLE SITE RIGHT RADIAL; BG TIDAL VOLUME(mL) 500.0 mL; BG TOTAL HEMOGLOBIN 13.4 g/dL (13.5-17.5); BG VENT MODE VENT - AC/PRVC; BG VENT RATE 16.0 set
[2025-03-27] MEDS: POTASSIUM CHLORIDE 20MEQ/PACKET PO NR (09:23)
[2025-03-27 14:13] LABS: EOSINOPHILS % MANUAL 2.0 % (0.0-5.0); LYMPHOCYTES % MANUAL 3.0 % (20.0-50.0); MONOCYTES % MANUAL 5.0 % (2.0-8.0); NEUTROPHILS % MANUAL 90.0 % (45.0-75.0); PLATELET ESTIMATE NORMAL
== END 2025-03-27 13:30 | DRG 720 ==
LOC: ER 16:11 → EDBEDREQ 19:00 → EDBEDREQSVC 19:01 → EDBEDREQTM 19:01 → 5EST 19:26 → EDBEDREQ 19:35 → ENRESERV 19:58 → MICUNO 02-13 12:00 → 5EST 03-01 11:27 → MICUSO 03-21 11:35
PROVIDERS: ADMIT Internal Medicine; ATTEND Internal Medicine
PROC: 5A09357 Assistance with Respiratory Ventilation, Less than 24 Consecutive Hours, Continuous Positive Airway Pressure (ICD-10-PCS; 2025-02-12)
PROC: 5A1955Z Respiratory Ventilation, Greater than 96 Consecutive Hours (ICD-10-PCS; principal; 2025-02-13)
PROC: 0BH17EZ Insertion of Endotracheal Airway into Trachea, Via Natural or Artificial Opening (ICD-10-PCS; 2025-02-13)
PROC: 4A00X4Z Measurement of Central Nervous Electrical Activity, External Approach (ICD-10-PCS; 2025-02-15)
PROC: 06H03DZ Insertion of Intraluminal Device into Inferior Vena Cava, Percutaneous Approach (ICD-10-PCS; 2025-02-18)
PROC: 02H633Z Insertion of Infusion Device into Right Atrium, Percutaneous Approach (ICD-10-PCS; 2025-02-23)
PROC: B548ZZA Ultrasonography of Superior Vena Cava, Guidance (ICD-10-PCS; 2025-02-23)
PROC: 0BC28ZZ Extirpation of Matter from Carina, Via Natural or Artificial Opening Endoscopic (ICD-10-PCS; 2025-02-24)
PROC: 0B9J8ZZ Drainage of Left Lower Lung Lobe, Via Natural or Artificial Opening Endoscopic (ICD-10-PCS; 2025-02-24)
PROC: 0B9G8ZZ Drainage of Left Upper Lung Lobe, Via Natural or Artificial Opening Endoscopic (ICD-10-PCS; 2025-02-24)
PROC: 0B9D8ZZ Drainage of Right Middle Lung Lobe, Via Natural or Artificial Opening Endoscopic (ICD-10-PCS; 2025-02-24)
PROC: 0B9F8ZZ Drainage of Right Lower Lung Lobe, Via Natural or Artificial Opening Endoscopic (ICD-10-PCS; 2025-02-24)
PROC: 0B9L8ZX Drainage of Left Lung, Via Natural or Artificial Opening Endoscopic, Diagnostic (ICD-10-PCS; 2025-02-24)
PROC: 5A09457 Assistance with Respiratory Ventilation, 24-96 Consecutive Hours, Continuous Positive Airway Pressure (ICD-10-PCS; 2025-02-27)
PROC: 5A0955A Assistance with Respiratory Ventilation, Greater than 96 Consecutive Hours, High Flow/Velocity Cannula (ICD-10-PCS; 2025-03-01)
PROC: 5A0955A Assistance with Respiratory Ventilation, Greater than 96 Consecutive Hours, High Flow/Velocity Cannula (ICD-10-PCS; 2025-03-11)
PROC: 5A0945A Assistance with Respiratory Ventilation, 24-96 Consecutive Hours, High Flow/Velocity Cannula (ICD-10-PCS; 2025-03-19)
PROC: 5A09357 Assistance with Respiratory Ventilation, Less than 24 Consecutive Hours, Continuous Positive Airway Pressure (ICD-10-PCS; 2025-03-21)
PROC: 5A1955Z Respiratory Ventilation, Greater than 96 Consecutive Hours (ICD-10-PCS; 2025-03-21)
PROC: 0BH17EZ Insertion of Endotracheal Airway into Trachea, Via Natural or Artificial Opening (ICD-10-PCS; 2025-03-21)
PROC: 05HM33Z Insertion of Infusion Device into Right Internal Jugular Vein, Percutaneous Approach (ICD-10-PCS; 2025-03-21)
PROC: B543ZZA Ultrasonography of Right Jugular Veins, Guidance (ICD-10-PCS; 2025-03-21)
DX: A41.51 Sepsis due to Escherichia coli [E. coli] (principal); J80 Acute respiratory distress syndrome; I60.9 Nontraumatic subarachnoid hemorrhage, unspecified; R65.21 Severe sepsis with septic shock; G93.41 Metabolic encephalopathy; I50.23 Acute on chronic systolic (congestive) heart failure; J69.0 Pneumonitis due to inhalation of food and vomit; R13.10 Dysphagia, unspecified; E87.3 Alkalosis; D50.9 Iron deficiency anemia, unspecified; E87.29 Other acidosis; I82.403 Acute embolism and thrombosis of unspecified deep veins of lower extremity, bilateral; I48.91 Unspecified atrial fibrillation; G40.909 Epilepsy, unspecified, not intractable, without status epilepticus; G20.A1 Parkinson's disease without dyskinesia, without mention of fluctuations; F20.9 Schizophrenia, unspecified; K21.9 Gastro-esophageal reflux disease without esophagitis; E87.5 Hyperkalemia; B19.20 Unspecified viral hepatitis C without hepatic coma; D75.839 Thrombocytosis, unspecified; R74.01 Elevation of levels of liver transaminase levels; I11.0 Hypertensive heart disease with heart failure; R00.1 Bradycardia, unspecified; N17.9 Acute kidney failure, unspecified; E87.6 Hypokalemia; F41.9 Anxiety disorder, unspecified; R13.12 Dysphagia, oropharyngeal phase; R74.8 Abnormal levels of other serum enzymes; G20.B1 Parkinson's disease with dyskinesia, without mention of fluctuations; M41.9 Scoliosis, unspecified; Z86.73 Personal history of transient ischemic attack (TIA), and cerebral infarction without residual deficits; Z99.11 Dependence on respirator [ventilator] status; Z79.899 Other long term (current) drug therapy; Z86.718 Personal history of other venous thrombosis and embolism; Z78.1 Physical restraint status; Q76.49 Other congenital malformations of spine, not associated with scoliosis; Y95 Nosocomial condition
CPT/HCPCS: 31500; 31720; 36415; 36573; 36600; 37191; 70551; 71045; 71250; 71275; 74018; 74177; 76604; 76705; 80048; 80053; 80076; 80202; 80305; 81003; 82140; 82375; 82533; 82550; 82728; 82805; 82962; 83036; 83540; 83550; 83605; 83735; 83880; 83930; 84100; 84132; 84145; 84439; 84443; 84478; 84484; 85025; 85027; 85379; 86141; 86705; 86713; 87070; 87077; 87186; 87340; 92610; 93005; 93306; 93970; 93971; 94002; 94003; 94070; 94640; 94660; 94664; 94667; 94760; 95816; 97163; 98960; 99291; A4606; A6261; C1725; C1769; C1880; C1887; J0360; J0456; J0461; J0612; J0696; J1308; J1644; J1650; J1720; J1938; J1953; J2003; J2060; J2185; J2250; J2371; J2405; J2470; J2543; J2704; J2919; J3010; J3373; J3490; J7030; J7042; J7050; J7060; J7120; J7608; Q9967